=== PATIENT | male | born 1945 | race Caucasian/White ===

== ENCOUNTER 2017-02-18 11:56 | Emergency (ER) | payer MEDICARE, BC ==
[~2017-02-18 11:56] MED LIST: Lactated Ringers 1,000 ML IV ONE; Propofol 200 MG/20 ML SDV IV ONE; Rocuronium 50 MG/5 ML Vial IV ONE; Succinylcholine/Normal Saline 200 MG/10 ML Syringe IV ONE; ePHEDrine/Normal Saline 50 MG/5 ML Syringe IV ONE
[2017-02-18] MEDS ORDERED: Sodium Chloride 0.9% 500 ML IV ONE (12:08)
[2017-02-18] MEDS ORDERED: DOPamine/Dextrose 5%-Water 400 MG/250 ML BAG IV SCH (12:10)
--- NOTE | 2017-02-18 13:15 | EDM.PDOC ---
ED HPI GENERAL MEDICAL PROBLEM - General Chief Complaint: Cardiovascular Problem Stated Complaint: CODE 100 Time Seen by Provider: 02/18/17 11:56 Source of Information: Reports: Patient History Limitations: Reports: No Limitations - History of Present Illness INITIAL COMMENTS - FREE TEXT/NARRATIVE: c/o cardiac arrest reports pt has had stent x 2 recently, valve replacement in past year and 3 prior intubations in past year pt with decline over past 2-3m with weakness, inc'd weakness in past 2d, saw PCP Dr Delarosa yesterday, unclear if there was a change in meds at home today and she found him down, unknown how long, pt had been ambulating earlier EMS arrived, in PEA, Javon compressions x 15 min, initial EKG with no ST changes as was the repeat in ED, trop neg here pt given epi x 2 and amiodarone 150 mg via IO for PVB altho rare PVB in ED EMS BP acceptable and on arrival here with a weak femoral pulse, fair AE with mod exp wheezing noted pt given Versed 2 mg enroute, some bucking the Zach tube on arrival here followed by copious emesis that came up the central tube, oral suction done as well as attempt at gastric suction via the smaller side tube with no return of secretions from the stomach, pt given 12 cc of propofol, 6 cc Anectine and 1 mg Versed and anesthestist changed out to a 8.0 ET tube on first pass, minimal oral secretions noted in the vault with suctioning by myself just prior to placement of Zach, no emesis noted in nares or oropharynx, Zach seemed adequate on inspection of the inflated bulb on arrival initial venous pH 7.14 with pCO2 68, repeat was 7.14 and 66, unclear why it had not improved more lungs with good AE and less (minimal) wheeze on vent, capnography adequate with both Zach and ET tube CxR not obtained d/t logistic limitations with backboard, ET at 24 cm at teeth pt arrived with IO, fairly quickly access obtained in each arm, pt appeared hydrated, no edema, distended veins that were easily cannulated labs with WBC 17.1, hgb 13.5, plt 201, BUN/creat 16/1.0 and 2 sons present from shortly after arrival and at bedside during much of resuscitation - Related Data Allergies Allergy/AdvReac Type Severity Reaction Status Date / Time No Known Allergies Allergy Verified 04/23/13 09:18 Home Meds: Home Meds Folic Acid 1 mg PO DAILY 04/23/13 [History] Furosemide 40 mg PO DAILY 04/23/13 [History] Gabapentin 300 mg PO BID 04/23/13 [History] Gabapentin 600 mg PO BEDTIME 04/23/13 [History] Methotrexate Sodium [Methotrexate] 15 mg PO ASDIRECTED 04/23/13 [History] Nortriptyline HCl 50 mg PO DAILY 04/23/13 [History] glyBURIDE [Glyburide] 5 mg PO BID 04/23/13 [History] metFORMIN HCl [Metformin HCl] 850 mg PO BID 04/23/13 [History] Fluticasone Propionate [Flonase] 50 mcg NASBOTH DAILY 08/15/13 [History] Triamcinolone Acetonide [Kenalog 0.1% Crm] 15 gm .XX BID 08/15/13 [History] Past Medical History Cardiovascular History: Reports: Heart Valve Replacement Other Respiratory History: Pneumonia on 01-12-17 - Past Surgical History Other Musculoskeletal Surgeries/Procedures:: R knee arthroscopy. R LISY ED ROS GENERAL - Review of Systems Review Of Systems: ROS reveals no pertinent complaints other than HPI. Constitutional: Reports: Weakness, Other ( reports he had a boil and then a sore of ~15 x 8 cm on his back that sounds like a decub altho back not able to be examined in ED). Denies: Fever, Chills, Diaphoresis HEENT: Reports: No Symptoms Respiratory: Reports: Wheezing Cardiovascular: Denies: Chest Pain, Edema, Lightheadedness, Orthopnea Endocrine: Reports: No Symptoms GI/Abdominal: Reports: No Symptoms : Reports: No Symptoms Musculoskeletal: Reports: No Symptoms Skin: Reports: No Symptoms Neurological: Reports: No Symptoms Psychiatric: Reports: No Symptoms Hematologic/Lymphatic: Reports: No Symptoms Immunologic: Reports: No Symptoms ED EXAM, GENERAL - Physical Exam Exam: See Below Exam Limited By: Physical Impairment General Appearance: WD/WN Ears: Normal External Exam Nose: Normal Inspection, Normal Mucosa, No Blood Throat/Mouth: Normal Inspection, Normal Lips, Normal Teeth, Normal Gums, Normal Oropharynx, No Airway Compromise, Other (partial dentures up and down) Head: Atraumatic, Normocephalic Neck: Normal Inspection Respiratory/Chest: Other (good AE, good chest wheeze, end exp wheeze b/l) Cardiovascular: Regular Rate, Rhythm, Other (no tachy, regular, rare PVB, 2/6 REI at [facility]) GI/Abdominal: Soft, No Distention Extremities: Normal Inspection, No Pedal Edema, Normal Capillary Refill. No: Pedal Edema Skin Exam: Warm, Dry, Intact, Normal Color, No Rash Lymphatic: No Adenopathy Course - Vital Signs Last Recorded V/S: Last Vital Signs Temp Pulse Resp BP Pulse Ox 92 L 02/18/17 12:45 - Orders/Labs/Meds Orders: Active Orders 24 hr Category Date Time Status Ventilator Assessment [RT Ventilator, Adult] [RC] Care 02/18/17 12:00 Active ASDIRECTED CULTURE BLOOD [BC] Routine Lab 02/18/17 12:20 Received Labs: Laboratory Tests 02/18/17 02/18/17 02/18/17 Range/Units 11:55 11:55 11:55 WBC (4.5-12.0) X10-3/uL RBC (4.30-5.75) x10(6)uL Hgb (11.5-15.5) g/dL Hct (30.0-51.3) % MCV (80-96) fL MCH (27.7-33.6) pg MCHC (32.2-35.4) g/dL RDW (11.5-15.5) % Plt Count (125-369) X10(3)uL MPV (7.4-10.4) fL Neut % (Auto) (46-82) % Lymph % (Auto) (13-37) % [place] % (Auto) (4-12) % Eos % (Auto) (1.0-5.0) % Baso % (Auto) (0-2) % Neut # (Auto) (1.6-8.3) # Lymph # (Auto) (0.6-5.0) # [place] # (Auto) (0.0-1.3) # Eos # (Auto) (0.0-0.8) # Baso # (Auto) (0.0-0.2) # POC Capillary pH 7.14 L* (7.35-7.45) POC Capillary pCO2 68.4 H* (35-45) mmHg POC Capillary pO2 43 L (80-105) mmHg POC Capillary HCO3 23.3 (22-26) mmol/L POC Capill Base Excess -6 L (-2-3) mmol/L POC Capillary O2 Sat 63 L (95-98) % Sodium 134 L (135-145) mmol/L Potassium 4.5 (3.5-5.3) mmol/L Chloride 103 (100-110) mmol/L Carbon Dioxide 22 L (23-29) mmol/L POC Total CO2 25 (23-27) mmol/L BUN 16 (8-23) mg/dL Creatinine 1.0 (0.6-1.3) mg/dL Est Cr Clr Drug Dosing TNP Estimated GFR (MDRD) > 60 (>60) BUN/Creatinine Ratio 16.0 (9-20) Glucose 341 H D (80-116) mg/dL Calcium 8.2 L (8.6-10.2) mg/dL Total Bilirubin 0.7 (0.1-1.3) mg/dL AST 44 H D (5-27) IU/L ALT 30 H D (14-26) IU/L Alkaline Phosphatase 139 H (56-112) IU/L Troponin I (0.02-0.06) NG/ML B-Natriuretic Peptide 87 (0-100) pg/mL Total Protein 6.7 (6.0-8.0) g/dL Albumin 3.0 L (3.2-4.6) g/dL Globulin 3.7 g/dL Albumin/Globulin Ratio 0.8 02/18/17 02/18/17 02/18/17 Range/Units 11:55 11:55 12:20 WBC 17.1 H (4.5-12.0) X10-3/uL RBC 4.96 (4.30-5.75) x10(6)uL Hgb 13.5 D (11.5-15.5) g/dL Hct 41.2 D (30.0-51.3) % MCV 83.1 (80-96) fL MCH 27.2 L (27.7-33.6) pg MCHC 32.8 (32.2-35.4) g/dL RDW 13.3 (11.5-15.5) % Plt Count 201 (125-369) X10(3)uL MPV 7.9 (7.4-10.4) fL Neut % (Auto) 78.7 (46-82) % Lymph % (Auto) 14.4 (13-37) % [place] % (Auto) 4.7 (4-12) % Eos % (Auto) 2 (1.0-5.0) % Baso % (Auto) 0 (0-2) % Neut # (Auto) 13.4 H (1.6-8.3) # Lymph # (Auto) 2.5 (0.6-5.0) # [place] # (Auto) 0.8 (0.0-1.3) # Eos # (Auto) 0.3 (0.0-0.8) # Baso # (Auto) 0.1 (0.0-0.2) # POC Capillary pH 7.14 L* (7.35-7.45) POC Capillary pCO2 66.2 H (35-45) mmHg POC Capillary pO2 27 L* (80-105) mmHg POC Capillary HCO3 22.5 (22-26) mmol/L POC Capill Base Excess -7 L (-2-3) mmol/L POC Capillary O2 Sat 33 L (95-98) % Sodium (135-145) mmol/L Potassium (3.5-5.3) mmol/L Chloride (100-110) mmol/L Carbon Dioxide (23-29) mmol/L POC Total CO2 24 (23-27) mmol/L BUN (8-23) mg/dL Creatinine (0.6-1.3) mg/dL Est Cr Clr Drug Dosing Estimated GFR (MDRD) (>60) BUN/Creatinine Ratio (9-20) Glucose (80-116) mg/dL Calcium (8.6-10.2) mg/dL Total Bilirubin (0.1-1.3) mg/dL AST (5-27) IU/L ALT (14-26) IU/L Alkaline Phosphatase (56-112) IU/L Troponin I < 0.01 L (0.02-0.06) NG/ML B-Natriuretic Peptide (0-100) pg/mL Total Protein (6.0-8.0) g/dL Albumin (3.2-4.6) g/dL Globulin g/dL Albumin/Globulin Ratio Meds: Medications Discontinued Medications Generic Name Dose Route Start Last Admin Trade Name Dayan PRN Reason Stop Dose Admin Ephedrine Sulfate 20 mg 02/18/17 11:45 Ephedrine In Ns IV 02/18/17 11:46 .STK-MED ONE Lactated Ringer's 1,000 mls @ as directed 02/18/17 11:45 Ringers, Lactated IV 02/18/17 11:46 .STK-MED ONE Propofol 120 mg 02/18/17 11:45 Diprivan 20 Ml IV 02/18/17 11:46 .STK-MED ONE Rocuronium Conde 30 mg 02/18/17 11:45 Zemuron IV 02/18/17 11:46 .STK-MED ONE Succinylcholine Chloride 120 mg 02/18/17 11:45 Succinylcholine In Ns Pf IV 02/18/17 11:46 .STK-MED ONE - Re-Assessments/Exams Free Text/Narrative Re-Assessment/Exam: 02/18/17 13:18 cardiac arrest, presumed arrhythmia, has no pacer or ACID, d/w bed triage at [facility] where he usually goes but they had no beds, d/w Dr Dow at [facility] who accepted him in transfer, report given to air transport, 1200 cc IVF given by EMS and another 1000 cc in ED, 200 cc fluids in IN bag at transport, total of 20 mg ephedrine given by dry cure worker, SBP down to 59 briefly, dopamine up to 40, then dec'd to 20 at time of transport with BP about 100/60, HR remained mid to low 70's entire time--even after meds, ASA and Plavix only anticoagulants Departure - Departure Time of Disposition: 13:00 Disposition: DC/Tfer to Acute Hospital 02 Reason for Transfer *Q: Other (critical to ICU) Condition: Critical Clinical Impression: Cardiac arrest, Sinus rhythm seen on monitor worker, Metabolic acidosis with respiratory acidosis, RBBB, First degree atrioventricular block Referrals: Fadi Klein MD [Primary Care Provider] - Forms: ED Department Discharge - My Orders Last 24 Hours: My Active Orders 02/18/17 12:00 Ventilator Assessment [RT Ventilator, Adult] [RC] ASDIRECTED 02/18/17 12:20 CULTURE BLOOD [BC] Routine - Assessment/Plan Last 24 Hours: My Active Orders 02/18/17 12:00 Ventilator Assessment [RT Ventilator, Adult] [RC] ASDIRECTED 02/18/17 12:20 CULTURE BLOOD [BC] Routine
== END 2017-02-18 12:49 ==
LOC: FB.ED 11:56
DX: I46.9 Cardiac arrest, cause unspecified (principal); I44.0 Atrioventricular block, first degree; I45.10 Unspecified right bundle-branch block; E87.4 Mixed disorder of acid-base balance; Z95.2 Presence of prosthetic heart valve; Z98.890 Other specified postprocedural states; Z79.899 Other long term (current) drug therapy; R06.2 Wheezing
CPT/HCPCS: 31500; 36410; 36415; 51702; 80053; 82803; 83880; 84484; 85025; 87040; 93005; 96361; 96365; 96374; 96375; 99285; 99291; J1265; J2704; J7040; J7120

== ENCOUNTER 2017-04-28 12:46 | Emergency (ER) | payer MEDICARE, BC ==
[2017-04-28] MEDS ORDERED: Iopamidol 755 Mg/ML 75 ML Bottle IV ONE (14:26)
--- NOTE | 2017-04-28 15:20 | EDM.PDOC ---
ED HPI GENERAL MEDICAL PROBLEM - General Chief Complaint: Cardiovascular Problem Stated Complaint: CHEST PAIN Time Seen by Provider: 04/28/17 13:08 Source of Information: Reports: Patient, Family History Limitations: Reports: Altered Mental Status, Physical Impairment, Respiratory Distress - History of Present Illness INITIAL COMMENTS - FREE TEXT/NARRATIVE: 72 y.o.w.m s/p cardiac arrest a few months ago, came to the ed with his family, because he was coughing in the bathroom and past out. As the pt arrived here in [facility] ed, he c/o c/p which was subsiding. He is a poor historian. minor movements make him extremely dizzy. Pt has chronic intermittent constipation. he has a h/ o right sided pleural effusions, which was drained in the past and analysed. No CA was detected, as per son. No records are available at [facility] [place]. Onset: Today Onset Date: 04/28/17 Onset Time: 11:00 Duration: Minutes:, Getting Worse, Intermittent Location: Reports: Chest, Abdomen Quality: Reports: Burning, Dull, Pressure, Same as Previous Episode Severity: Moderate Improves with: Reports: Medication Worsens with: Reports: Breathing, Cold Therapy, Eating, Heat Therapy, Movement Context: Reports: Other (S/P cardiac arrest) Associated Symptoms: Reports: Confusion, Cough, Shortness of Breath, Weakness - Related Data Allergies Allergy/AdvReac Type Severity Reaction Status Date / Time No Known Allergies Allergy Verified 04/23/13 09:18 Home Meds: Home Meds Furosemide 40 mg PO DAILY 04/23/13 [History] Gabapentin 300 mg PO BID 04/23/13 [History] Gabapentin 600 mg PO BEDTIME 04/23/13 [History] Nortriptyline HCl 50 mg PO DAILY 04/23/13 [History] glyBURIDE [Glyburide] 5 mg PO BID 04/23/13 [History] Past Medical History Cardiovascular History: Reports: Heart Valve Replacement Other Respiratory History: Pneumonia on 01-12-17 - Past Surgical History Other Musculoskeletal Surgeries/Procedures:: R knee arthroscopy. R LISY Social & Family History - Tobacco Use Smoking Status *Q: Former Smoker Used Tobacco, but Quit: Yes Month Tobacco Last Used: vanna Second Hand Smoke Exposure: No - Caffeine Use Caffeine Use: Reports: Coffee - Recreational Drug Use Recreational Drug Use: No ED ROS GENERAL - Review of Systems Review Of Systems: Unable To Obtain ED EXAM, GENERAL - Physical Exam Exam: See Below Exam Limited By: Physical Impairment General Appearance: Alert, Moderate Distress, Thin Eye Exam: Bilateral Eye: Normal Inspection Ears: Normal External Exam Ear Exam: Bilateral Ear: Auricle Normal Nose: Normal Inspection, Normal Mucosa Throat/Mouth: Normal Inspection, Normal Lips Head: Atraumatic, Normocephalic Neck: Normal Inspection, Supple Respiratory/Chest: Respiratory Distress, Decreased Breath Sounds (poor insp effort) Cardiovascular: Normal Peripheral Pulses, Regular Rate, Rhythm, No Edema, No Gallop Peripheral Pulses: 1+: Femoral (L), Femoral (R) GI/Abdominal: Distended, Rigid, Tender, Abnormal Bowel Sounds (Male) Exam: Deferred Rectal (Males) Exam: Deferred Back Exam: Normal Inspection, Full Range of Motion Extremities: Normal Inspection, Normal Range of Motion, Non-Tender, No Pedal Edema Neurological: Alert, CN II-XII Intact, Abnormal Gait (unable to ambulate due to weakness, dizzyness) Psychiatric: Normal Affect, Depressed Mood Skin Exam: Warm, Dry, Intact, Normal Color, No Rash Lymphatic: No Adenopathy EKG INTERPRETATION EKG Date: 04/28/17 Time: 13:10 Rhythm: NSR Rate (Beats/Min): 80 [place]: Normal P-Wave: Present QRS: Normal ST-T: Normal QT: Normal Comparison: NA - No Prior EKG Course - Vital Signs Text/Narrative:: 72 y.o.w.m s/p cardiac arrest a few months ago, came to the ed with his family, because he was coughing in the bathroom and past out. As the pt arrived here in [facility] ed, he c/o c/p which was subsiding. He is a poor historian. minor movements make him extremely dizzy. Pt has chronic intermittent constipation. he has a h/ o right sided pleural effusions, which was drained in the past and analysed. No CA was detected, as per son. No records are available at [facility]. PE: weak, thin 72 y.o.w.m NAD with a BP 100/55 and pus of 80, pulse ox on 2 liters O2 94% OX# no focal weaknesses, distended and tender abdomen. Imaging: CXR Pleural effusion r lung. RAD requested a CXR PA/LAT Labs: CBC, Na and K were nl. Troponin 0.01 Impression: Syncopal episode with C/P, R pleural effusion. Chronic constipation , S/P cardiac arrest. H/O heartvalve replacement. DNR/DNI (as per son,) Dizziness, cause not determined; generalized weakness. Tx: NS Reexam: Pt attempted to go to the bathroom, with help and got extremely dizzy, needing to go back to his bed. He stabilized after O2 was applied per PR. 3.40pm Consultation Dr. Doan, Hospitalist at [facility]: Accepted the pt for transfer and admission Plan: Transfer to [facility] by EMS. Last Recorded V/S: Last Vital Signs Temp 36.4 C 04/28/17 16:34 Pulse 84 04/28/17 16:34 Resp 22 H 04/28/17 16:34 BP 96/52 L 04/28/17 16:34 Pulse Ox 100 04/28/17 16:34 - Orders/Labs/Meds Orders: Active Orders 24 hr Category Date Time Status CXR [Chest 2V] [CR] Stat Exams 04/28/17 14:47 Taken Chest 1V Frontal [CR] Stat Exams 04/28/17 13:17 Taken Saline Lock Insert [OM.PC] Routine Oth 04/28/17 15:49 Ordered EKG 12 Lead [EK] Routine Ther 04/28/17 13:17 Ordered Labs: Laboratory Tests 04/28/17 04/28/17 04/28/17 Range/Units 12:57 13:30 13:30 WBC 8.3 (4.5-12.0) X10-3/uL RBC 4.80 (4.30-5.75) x10(6)uL Hgb 13.8 (11.5-15.5) g/dL Hct 40.4 (30.0-51.3) % MCV 84.2 (80-96) fL MCH 28.8 (27.7-33.6) pg MCHC 34.2 (32.2-35.4) g/dL RDW 14.2 (11.5-15.5) % Plt Count 214 (125-369) X10(3)uL MPV 7.8 (7.4-10.4) fL Add Manual Diff Yes Neutrophils % (Manual) 85 H (46-82) % Lymphocytes % (Manual) 10 L (13-37) % Monocytes % (Manual) 4 (4-12) % Eosinophils % (Manual) 1 (0-5) % PT 11.0 (8.7-11.1) INR 1.09 (0.89-1.13) Sodium (135-145) mmol/L Potassium (3.5-5.3) mmol/L Chloride (100-110) mmol/L Carbon Dioxide (23-29) mmol/L BUN (8-23) mg/dL Creatinine (0.6-1.3) mg/dL Est Cr Clr Drug Dosing mL/min Estimated GFR (MDRD) (>60) BUN/Creatinine Ratio (9-20) Glucose (80-116) mg/dL POC Glucose 143 H (80-116) mg/dL Lactic Acid (0.5-2.2) mmol/L Calcium (8.6-10.2) mg/dL Creatine Kinase (60-160) IU/L Troponin I (0.02-0.06) NG/ML 04/28/17 04/28/17 04/28/17 Range/Units 13:30 13:30 13:30 WBC (4.5-12.0) X10-3/uL RBC (4.30-5.75) x10(6)uL Hgb (11.5-15.5) g/dL Hct (30.0-51.3) % MCV (80-96) fL MCH (27.7-33.6) pg MCHC (32.2-35.4) g/dL RDW (11.5-15.5) % Plt Count (125-369) X10(3)uL MPV (7.4-10.4) fL Add Manual Diff Neutrophils % (Manual) (46-82) % Lymphocytes % (Manual) (13-37) % Monocytes % (Manual) (4-12) % Eosinophils % (Manual) (0-5) % PT (8.7-11.1) INR (0.89-1.13) Sodium 135 (135-145) mmol/L Potassium 4.3 (3.5-5.3) mmol/L Chloride 102 (100-110) mmol/L Carbon Dioxide 23 (23-29) mmol/L BUN 18 (8-23) mg/dL Creatinine 1.0 (0.6-1.3) mg/dL Est Cr Clr Drug Dosing 74.35 mL/min Estimated GFR (MDRD) > 60 (>60) BUN/Creatinine Ratio 18.0 (9-20) Glucose 168 H D (80-116) mg/dL POC Glucose (80-116) mg/dL Lactic Acid 2.3 H (0.5-2.2) mmol/L Calcium 8.6 (8.6-10.2) mg/dL Creatine Kinase 50 L (60-160) IU/L Troponin I < 0.01 L (0.02-0.06) NG/ML Meds: Medications Discontinued Medications Generic Name Dose Route Start Last Admin Trade Name Freq PRN Reason Stop Dose Admin Iopamidol 75 ml 04/28/17 14:26 Isovue-370 (76%) IV 04/28/17 14:27 ASDIRECTED ONE Sodium Chloride 10 ml 04/28/17 15:49 04/28/17 15:50 Saline Flush FLUSH 10 ml ASDIRECTED PRN Administration Keep Vein Open Departure - Departure Time of Disposition: 17:00 Disposition: DC/Tfer to [facility] 02 Reason for Transfer *Q: Other (no gas singer in house) Condition: Fair Clinical Impression: Atypical syncope Referrals: Fadi Klein MD [Primary Care Provider] - Forms: ED Department Discharge - My Orders Last 24 Hours: My Active Orders 04/28/17 13:17 Chest 1V Frontal [CR] Stat EKG 12 Lead [EK] Routine 04/28/17 14:47 CXR [Chest 2V] [CR] Stat 04/28/17 15:49 Saline Lock Insert [OM.PC] Routine - Assessment/Plan Last 24 Hours: My Active Orders 04/28/17 13:17 Chest 1V Frontal [CR] Stat EKG 12 Lead [EK] Routine 04/28/17 14:47 CXR [Chest 2V] [CR] Stat 04/28/17 15:49 Saline Lock Insert [OM.PC] Routine
[2017-04-28] MEDS ORDERED: Sodium Chloride 0.9% 10 ML Syringe FLUSH PRN (15:49)
[2017-04-28 16:36] VITALS: BP 96/52
--- NOTE | 2017-04-29 09:02 | CR ---
INDICATION: Reevaluate pleural effusion. CHEST: PA and lateral views of the chest, 04/28/2017, were compared with AP view, a portable from the same date earlier, (1458 and 1336 hours respectively for the two images), and also compared with 03/11/2017 and 02/08/2017 examinations from the clinic. The pleuroparenchymal changes at the right lung base are not new and have been present since at least 02/08/2017. At this time, there appears to be a somewhat increased amount of pleural fluid, however. This is a slight increase compared with 03/11/2017, but a moderate increase compared with 02/08/2017. It is moderate to moderately large pleural effusion. There may be some infiltrative changes and/or atelectatic changes present also in this area. Aortic valve replacement is again noted. The heart is enlarged without definite CHF. Overlying EKG leads are seen. IMPRESSION: Slightly enlarged pleural effusion on the right with parenchymal changes also suggested. No new acute process identified. MTDD
--- NOTE | 2017-04-29 15:18 | CR ---
INDICATION: Chest pain. CHEST: An AP upright portable view of the chest, 04/28/2017, was compared with 03/11/2017 and 02/08/2017, again revealing pleuroparenchymal changes at the right lung base, which appear to be significantly increased compared with the recent examinations. Especially pleural effusion appears to be increased. Findings may be on the basis of pneumonia and pleuritis, but should be correlated clinically. No other change or new acute process was identified. The heart appears enlarged. Overlying EKG leads are noted. Left lung and pleural space appear to be clear. IMPRESSION: Increasing pleuroparenchymal changes on the right at the mid to lower lung field, including a moderately large pleural effusion. MTDD
== END 2017-04-28 16:34 ==
LOC: FB.ED 12:46
DX: R55 Syncope and collapse (principal); Z87.891 Personal history of nicotine dependence
CPT/HCPCS: 36415; 71010; 71020; 80048; 82550; 82962; 83605; 84484; 85025; 85610; 93005; 99285; J7050; 99284

== ENCOUNTER 2018-11-05 22:49 | Inpatient (IN) | payer MEDICARE, BC ==
[2018-11-05] MEDS ORDERED: Albuterol/Ipratropium 3.0-0.5 MG/3 ML Neb Soln NEB ONE (23:33)
[2018-11-06] MEDS ORDERED: Acetaminophen 325 MG Tab PO STA (00:08)
--- NOTE | 2018-11-06 00:13 | EDM.PDOC ---
ED HPI GENERAL MEDICAL PROBLEM - General Chief Complaint: Respiratory Problem Stated Complaint: TROUBLE BREATHING Time Seen by Provider: 11/05/18 22:49 Source of Information: Reports: Patient, Family History Limitations: Reports: Respiratory Distress - History of Present Illness INITIAL COMMENTS - FREE TEXT/NARRATIVE: 73 y.o.w.m came with his to the ED because of SOB and right ankle swelling , which is new. He his temp is 1.2 on arrival. No CP. Pt is breathing better in sitting position, he has a dry cough intermittently. He feels fullness at his lower chest, bilaterally. No N/V/D, pt is a poor historian, his HPI was given by his wive. no other acute medical issues. Pulse ox 90% on RA RR 18 Temp 38.4 Pulse 94 Onset Date: 11/03/18 Onset Time: 07:00 Duration: Day(s):, Getting Worse, Intermittent Location: Reports: Chest Quality: Reports: Dull, Same as Previous Episode Severity: Moderate Improves with: Reports: Rest Worsens with: Reports: Movement Context: Reports: Other (H/O CHF H/O pneumonia) Associated Symptoms: Reports: Chest Pain, Shortness of Breath abdomen Pain Score (Numeric/FACES): 2 - Related Data Allergies Allergy/AdvReac Type Severity Reaction Status Date / Time No Known Allergies Allergy Verified 11/06/18 01:57 Home Meds: Home Meds Furosemide 40 mg PO BID 04/23/13 [History] Gabapentin 300 mg PO BID 04/23/13 [History] Carvedilol [Coreg] 12.5 mg PO BID 03/09/18 [History] Clopidogrel Bisulfate [Clopidogrel] 75 mg PO DAILY 03/09/18 [History] Famotidine 20 mg PO BID 03/09/18 [History] Nitroglycerin [Nitrostat] 0.4 mg SL ASDIRECTED PRN 03/09/18 [History] Nortriptyline 50 mg PO BEDTIME 03/09/18 [History] Tamsulosin [Flomax] 0.4 mg PO DAILY 03/09/18 [History] amLODIPine Besylate [Norvasc] 5 mg PO DAILY 03/09/18 [History] glipiZIDE [Glucotrol] 5 mg PO BID 03/09/18 [History] Fluticasone Propionate [Flonase] 1 inh NASBOTH DAILY 11/06/18 [History] Fluticasone/Umeclidin/Vilanter [Trelegy Ellipta 100-62.5-25] 1 puff INH DAILY [History] atorvaSTATin [Lipitor] 10 mg PO BEDTIME 11/06/18 [History] Past Medical History HEENT History: Reports: Cataract, Impaired Vision, Other (See Below) Other HEENT History: DIABETIC RETINOPATHY Cardiovascular History: Reports: Arrhythmia, Heart Murmur, Heart Valve Replacement, PVD, Stents, Other (See Below) Other Cardiovascular History: AORTIC STENOSIS Genitourinary History: Reports: BPH Musculoskeletal History: Reports: Arthritis Neurological History: Reports: Other (See Below) Other Neuro History: SINHA'S PALSY Psychiatric History: Reports: None Endocrine/Metabolic History: Reports: Diabetes, Type II Hematologic History: Reports: Anticoagulation Therapy Immunologic History: Reports: None Oncologic (Cancer) History: Reports: None Dermatologic History: Reports: None - Past Surgical History HEENT Surgical History: Reports: Cataract Surgery, Eye Surgery Cardiovascular Surgical History: Reports: Coronary Artery Stent, Other (See Below) Other Cardiovascular Surgeries/Procedures: TRANSFEMORAL AORTIC VALVE IMPLANTATION GI Surgical History: Reports: Cholecystectomy Neurological Surgical History: Reports: Discectomy, Laminectomy Musculoskeletal Surgical History: Reports: Arthroscopic Knee, Hip Replacement Other Musculoskeletal Surgeries/Procedures:: R knee arthroscopy. R LISY Social & Family History - Caffeine Use Caffeine Use: Reports: Coffee ED ROS GENERAL - Review of Systems Review Of Systems: Unable To Obtain (hypoxemia) ED EXAM, GENERAL - Physical Exam Exam: See Below Exam Limited By: Respiratory Distress General Appearance: Alert, WD/WN, Moderate Distress Eye Exam: Bilateral Eye: Normal Inspection Ears: Normal External Exam Ear Exam: Bilateral Ear: Auricle Normal Nose: Normal Inspection, Normal Mucosa, No Blood Throat/Mouth: Normal Inspection, Normal Lips, Normal Voice, No Airway Compromise Head: Atraumatic, Normocephalic Neck: Normal Inspection, Supple, Non-Tender, Full Range of Motion Respiratory/Chest: No Respiratory Distress, Lungs Clear, Normal Breath Sounds Cardiovascular: Normal Peripheral Pulses, Regular Rate, Rhythm, No Edema, No Gallop, No Rub Peripheral Pulses: 2+: Brachial (R) GI/Abdominal: Normal Bowel Sounds, Soft, Non-Tender, No Organomegaly, No Abnormal Bruit, No Mass, Pelvis Stable (Male) Exam: Deferred Rectal (Males) Exam: Deferred Back Exam: Normal Inspection, Full Range of Motion Extremities: Normal Inspection, Normal Range of Motion, Non-Tender, Pedal Edema (right leg) Neurological: Alert, Oriented, CN II-XII Intact, Normal Cognition, Abnormal Gait (to weak to ambulate) Psychiatric: Normal Affect, Normal Mood Skin Exam: Warm, Dry, Intact, Normal Color, No Rash Lymphatic: No Adenopathy Course - Vital Signs Text/Narrative:: 73 y.o.w.m came with his to the ED because of SOB and right ankle swelling , which is new. He his temp is 1.2 on arrival. No CP. Pt is breathing better in sitting position, he has a dry cough intermittently. He feels fullness at his lower chest, bilaterally. No N/V/D, pt is a poor historian, his HPI was given by his wive. no other acute medical issues. Pulse ox 90% on RA RR 18 Temp 38.4 Pulse 94 PE: WNWD W M with SOB, Cough and fever and cracles Imaging: intrapleural train in place, atelectasis/infiltrate, small right basilar hydropneumothorx Labs: BNP 1031 WBC 10.3 HGB 10.3 BUN 20 Cr 1.1 GFR 50 Na 131, k 4.0 Impression: CHF with hypoxemia, Hyponatremia Tx: Tylenol, Duoneb, lasix Reexam: Improved Plan: Admit to [facility] Last Recorded V/S: Last Vital Signs Temp 36.4 C 11/06/18 07:59 Pulse 81 11/06/18 07:59 Resp 18 11/06/18 07:59 BP 143/76 H 11/06/18 07:59 Pulse Ox 94 L 11/06/18 07:59 - Orders/Labs/Meds Orders: Active Orders 24 hr Category Date Time Status CXR [Chest 2V] [CR] Stat Exams 11/05/18 23:32 Ordered Medication Orders Albuterol (Proventil Neb Soln) 2.5 mg NEB Q4H PRN PRN Reason: sob Last Admin: 11/06/18 03:27 Dose: 2.5 mg Amlodipine Besylate (Norvasc) 5 mg PO DAILY [facility] Atorvastatin Calcium (Lipitor) 10 mg PO BEDTIME [facility] Carvedilol (Coreg) 12.5 mg PO BID [facility] Clopidogrel Bisulfate (Plavix) 75 mg PO DAILY [facility] Famotidine (Pepcid) 20 mg PO BID [facility] Fluticasone Propionate (Flonase) gm NASBOTH DAILY [facility] Furosemide (Lasix) 40 mg PO BID [facility] Gabapentin (Neurontin) 300 mg PO BID [facility] Glipizide (Glucotrol) 5 mg PO BID [facility] Levofloxacin/Dextrose 500 mg/ (Premix) 100 mls @ 100 mls/hr IV Q24H [facility] Methylprednisolone Sodium Succinate (Solu-Medrol) 125 mg IVPUSH Q8H [facility] Nitroglycerin (Nitrostat) 0.4 mg SL ASDIRECTED PRN PRN Reason: Chest Pain Non-Formulary Medication (Fluticasone/Umeclidin/Vilanter [Trelegy Ellipta 100- 62.5-25]) 1 puff INH DAILY [facility] Nortriptyline HCl (Nortriptyline) 50 mg PO BEDTIME [facility] Sodium Chloride (Saline Flush) 10 ml FLUSH ASDIRECTED PRN PRN Reason: Keep Vein Open Last Admin: 11/06/18 01:22 Dose: 10 ml Admin: 11/06/18 01:15 Dose: 10 ml Tamsulosin HCl (Flomax) 0.4 mg PO DAILY [facility] Labs: Laboratory Tests 11/05/18 11/05/18 11/05/18 Range/Units 23:35 23:35 23:35 WBC 10.3 (4.5-12.0) X10-3/uL RBC 3.90 L (4.30-5.75) x10(6)uL Hgb 10.3 L (13.5-17.8) g/dL Hct 31.0 (30.0-51.3) % MCV 79.6 L (80-96) fL MCH 26.5 L (27.7-33.6) pg MCHC 33.3 (32.2-35.4) g/dL RDW 14.7 (11.5-15.5) % Plt Count 246 (125-369) X10(3)uL MPV 7.3 L (7.4-10.4) fL Add Manual Diff Yes Neutrophils % (Manual) 83 H (46-82) % Band Neutrophils % 3 (0-6) % Lymphocytes % (Manual) 6 L (13-37) % Monocytes % (Manual) 8 (4-12) % PT 11.5 H (8.7-11.1) INR 1.19 H (0.89-1.13) Sodium 131 L (135-145) mmol/L Potassium 4.4 (3.5-5.3) mmol/L Chloride 97 L (100-110) mmol/L Carbon Dioxide 25 (21-32) mmol/L BUN 20 H (7-18) mg/dL Creatinine 1.4 H (0.70-1.30) mg/dL Est Cr Clr Drug Dosing TNP Estimated GFR (MDRD) 50 L (>60) BUN/Creatinine Ratio 14.3 (9-20) Glucose 376 H (80-116) mg/dL Calcium 8.4 L (8.6-10.2) mg/dL NT-Pro-B Natriuret Pep (<=125) pg/mL 11/05/18 Range/Units 23:35 WBC (4.5-12.0) X10-3/uL RBC (4.30-5.75) x10(6)uL Hgb (13.5-17.8) g/dL Hct (30.0-51.3) % MCV (80-96) fL MCH (27.7-33.6) pg MCHC (32.2-35.4) g/dL RDW (11.5-15.5) % Plt Count (125-369) X10(3)uL MPV (7.4-10.4) fL Add Manual Diff Neutrophils % (Manual) (46-82) % Band Neutrophils % (0-6) % Lymphocytes % (Manual) (13-37) % Monocytes % (Manual) (4-12) % PT (8.7-11.1) INR (0.89-1.13) Sodium (135-145) mmol/L Potassium (3.5-5.3) mmol/L Chloride (100-110) mmol/L Carbon Dioxide (21-32) mmol/L BUN (7-18) mg/dL Creatinine (0.70-1.30) mg/dL Est Cr Clr Drug Dosing Estimated GFR (MDRD) (>60) BUN/Creatinine Ratio (9-20) Glucose (80-116) mg/dL Calcium (8.6-10.2) mg/dL NT-Pro-B Natriuret Pep 1031 H* (<=125) pg/mL Meds: Medications Generic Name Dose Route Start Last Admin Trade Name Dayan PRN Reason Stop Dose Admin Albuterol 2.5 mg 11/06/18 01:05 11/06/18 09:19 Proventil Neb Soln NEB 2.5 mg Q4H PRN Administration sob Amlodipine Besylate 5 mg 11/06/18 09:00 Norvasc PO DAILY [facility] Atorvastatin Calcium 10 mg 11/06/18 21:00 Lipitor PO BEDTIME [facility] Carvedilol 12.5 mg 11/06/18 09:00 Coreg PO BID [facility] Clopidogrel Bisulfate 75 mg 11/06/18 09:00 Plavix PO DAILY [facility] Famotidine 20 mg 11/06/18 09:00 Pepcid PO BID [facility] Fluticasone Propionate gm 11/06/18 09:00 Flonase NASBOTH DAILY [facility] Furosemide 40 mg 11/06/18 09:00 Lasix PO BID [facility] Gabapentin 300 mg 11/06/18 09:00 Neurontin PO BID [facility] Glipizide 5 mg 11/06/18 09:00 Glucotrol PO BID [facility] Levofloxacin/Dextrose 500 mg/ 100 mls @ 100 mls/hr 11/06/18 09:00 Premix IV Q24H [facility] Methylprednisolone Sodium Succinate 125 mg 11/06/18 09:00 Solu-Medrol IVPUSH Q8H [facility] Nitroglycerin 0.4 mg 11/06/18 08:45 Nitrostat SL ASDIRECTED PRN Chest Pain Non-Formulary Medication 1 puff 11/06/18 09:00 Fluticasone/Umeclidin/Vilanter [Trelegy Ellipta 100-62.5-25] INH DAILY [facility] Nortriptyline HCl 50 mg 11/06/18 21:00 Nortriptyline PO BEDTIME [facility] Sodium Chloride 10 ml 11/06/18 01:39 11/06/18 01:22 Saline Flush FLUSH 10 ml ASDIRECTED PRN Administration Keep Vein Open Tamsulosin HCl 0.4 mg 11/06/18 09:00 Flomax PO DAILY [facility] Discontinued Medications Generic Name Dose Route Start Last Admin Trade Name Teoq PRN Reason Stop Dose Admin Acetaminophen 650 mg 11/06/18 00:08 11/06/18 00:18 Tylenol PO 11/06/18 00:09 650 mg NOW STA Administration Albuterol/Ipratropium 3 ml 11/05/18 23:33 11/05/18 23:54 Duoneb 3.0-0.5 Mg/3 Ml NEB 11/05/18 23:34 3 ml ONETIME ONE Administration Furosemide 20 mg 11/06/18 00:46 11/06/18 01:20 Lasix IVPUSH 11/06/18 00:47 20 mg NOW ONE Administration Methylprednisolone Sodium Succinate 125 mg 11/06/18 01:06 11/06/18 01:22 Solu-Medrol IVPUSH 11/06/18 01:07 125 mg ONETIME ONE Administration Departure - Departure Time of Disposition: 02:00 Disposition: Admitted As Inpatient 65 Condition: Fair Clinical Impression: CHF (congestive heart failure) - Discharge Information - My Orders Last 24 Hours: My Active Orders 11/05/18 23:32 CXR [Chest 2V] [CR] Stat - Assessment/Plan Last 24 Hours: My Active Orders 11/05/18 23:32 CXR [Chest 2V] [CR] Stat
[2018-11-06] MEDS ORDERED: Furosemide 40 MG/4 ML VIAL IVPUSH ONE (00:46)
[2018-11-06] MEDS ORDERED: methylPREDNISolone Sodium Succinate 125 MG/2 ML SDV IVPUSH ONE (01:06)
[2018-11-06] MEDS: Sodium Chloride 0.9% 10 ML Syringe FLUSH PRN ×4 (01:15→17:02)
[2018-11-06] MEDS: Albuterol 0.083% 2.5 MG/3 ML Neb Soln NEB PRN ×2 (03:27→09:19)
[2018-11-06] MEDS ORDERED: Nitroglycerin 0.4 MG Tab.SL SL PRN (08:45)
--- NOTE | 2018-11-06 08:45 | PCM.HP ---
H&P History of Present Illness - General Date of Service: 11/06/18 Admit Problem/Dx: Admission Diagnosis/Problem Admission Diagnosis/Problem CHF, Congestive heart failure History Limitations: Reports: No Limitations - History of Present Illness Initial Comments - Free Text/Narative: 73-year-old male was admitted because of cough, productive of greenish sputum, associated with difficulty breathing. Symptoms have gone on for several days, insidious onset,and progressively getting worse. Dejan has a history of chronic pleural effusion,and possibly COPD. He also has a history of coronary disease, type 2 diabetes and CVA. He denied fever chest pain or chills. abdomen Pain Score (Numeric/FACES): 2 - Related Data Allergies/Adverse Reactions: Allergies Allergy/AdvReac Type Severity Reaction Status Date / Time No Known Allergies Allergy Verified 11/06/18 01:57 Home Medications: Home Meds Furosemide 40 mg PO BID 04/23/13 [History] Gabapentin 300 mg PO BID 04/23/13 [History] Carvedilol [Coreg] 12.5 mg PO BID 03/09/18 [History] Clopidogrel Bisulfate [Clopidogrel] 75 mg PO DAILY 03/09/18 [History] Famotidine 20 mg PO BID 03/09/18 [History] Nitroglycerin [Nitrostat] 0.4 mg SL ASDIRECTED PRN 03/09/18 [History] Nortriptyline 50 mg PO BEDTIME 03/09/18 [History] Tamsulosin [Flomax] 0.4 mg PO DAILY 03/09/18 [History] amLODIPine Besylate [Norvasc] 5 mg PO DAILY 03/09/18 [History] glipiZIDE [Glucotrol] 5 mg PO BID 03/09/18 [History] Fluticasone Propionate [Flonase] 1 inh NASBOTH DAILY 11/06/18 [History] Fluticasone/Umeclidin/Vilanter [Trelegy Ellipta 100-62.5-25] 1 puff INH DAILY [History] atorvaSTATin [Lipitor] 10 mg PO BEDTIME 11/06/18 [History] Past Medical History HEENT History: Reports: Cataract, Impaired Vision, Other (See Below) Other HEENT History: DIABETIC RETINOPATHY Cardiovascular History: Reports: Arrhythmia, Heart Murmur, Heart Valve Replacement, PVD, Stents, Other (See Below) Other Cardiovascular History: AORTIC STENOSIS Respiratory History: Reports: COPD, Pneumonia, Recurrent Gastrointestinal History: Reports: Cholelithiasis Genitourinary History: Reports: BPH Musculoskeletal History: Reports: Arthritis Neurological History: Reports: Other (See Below) Other Neuro History: SINHA'S PALSY Psychiatric History: Reports: None Endocrine/Metabolic History: Reports: Diabetes, Type II Hematologic History: Reports: Anticoagulation Therapy Immunologic History: Reports: None Oncologic (Cancer) History: Reports: None Dermatologic History: Reports: None - Infectious Disease History Infectious Disease History: Reports: None - Past Surgical History HEENT Surgical History: Reports: Cataract Surgery, Eye Surgery Cardiovascular Surgical History: Reports: Coronary Artery Stent, Other (See Below) Other Cardiovascular Surgeries/Procedures: TRANSFEMORAL AORTIC VALVE IMPLANTATION Respiratory Surgical History: Reports: None GI Surgical History: Reports: Cholecystectomy, Colonoscopy Male Surgical History: Reports: Circumcision Neurological Surgical History: Reports: Discectomy, Laminectomy Musculoskeletal Surgical History: Reports: Arthroscopic Knee, Hip Replacement Other Musculoskeletal Surgeries/Procedures:: R knee arthroscopy. R LISY Social & Family History - Family History HEENT: Reports: None - Tobacco Use Smoking Status *Q: Former Smoker Used Tobacco, but Quit: Yes Month/Year Tobacco Last Used: 40 years ago Second Hand Smoke Exposure: No - Caffeine Use Caffeine Use: Reports: Coffee, Tea Caffeine Use Comment: He drinks at least one cup a day. - Recreational Drug Use Recreational Drug Use: No H&P Review of Systems - Review of Systems: Review Of Systems: ROS reveals no pertinent complaints other than HPI. Exam - Exam Exam: See Below - Vital Signs Vital Signs: Last Vital Signs Temp 97.5 F 11/06/18 07:59 Pulse 81 11/06/18 07:59 Resp 18 11/06/18 07:59 BP 143/76 H 11/06/18 07:59 Pulse Ox 94 L 11/06/18 07:59 Weight: 92.306 kg - Exam General: Alert, Oriented, 4 HEENT: PERRLA, Hearing Intact, Mucosa Moist & [place], Nares Patent, Normal Nasal Septum, Posterior Pharynx Clear, Conjunctiva Clear, EOMI, EACs Clear, TMs Clear Neck: Supple, Trachea Midline, 2 Lungs: Decreased Breath Sounds, Rales Cardiovascular: Regular Rate, Regular Rhythm GI/Abdominal Exam: Normal Bowel Sounds, Soft, Non-Tender, No Organomegaly, No Distention, No Abnormal Bruit, No Mass, Pelvis Stable (Male) Exam: Deferred Rectal (Males) Exam: Deferred Back Exam: Normal Inspection, Full Range of Motion, NT Extremities: Normal Inspection, Normal Range of Motion, Non-Tender, No Pedal Edema, Normal Capillary Refill Skin: Warm, Dry, Intact Neurological: Cranial Nerves Intact, Reflexes Equal Bilateral Neuro Extensive - Mental Status: Alert, Oriented x3, Normal Mood/Affect, Normal Cognition Neuro Extensive - Motor, Sensory, Reflexes: CN II-XII Intact, Normal Gait, Normal Reflexes Psychiatric: Alert, Normal Affect, Normal Mood - Patient Data Lab Results Last 24 hrs: Laboratory Results - last 24 hr 11/05/18 11/05/18 11/05/18 Range/Units 23:35 23:35 23:35 WBC 10.3 (4.5-12.0) X10-3/uL RBC 3.90 L (4.30-5.75) x10(6)uL Hgb 10.3 L (13.5-17.8) g/dL Hct 31.0 (30.0-51.3) % MCV 79.6 L (80-96) fL MCH 26.5 L (27.7-33.6) pg MCHC 33.3 (32.2-35.4) g/dL RDW 14.7 (11.5-15.5) % Plt Count 246 (125-369) X10(3)uL MPV 7.3 L (7.4-10.4) fL Add Manual Diff Yes Neutrophils % (Manual) 83 H (46-82) % Band Neutrophils % 3 (0-6) % Lymphocytes % (Manual) 6 L (13-37) % Monocytes % (Manual) 8 (4-12) % PT 11.5 H (8.7-11.1) INR 1.19 H (0.89-1.13) Sodium 131 L (135-145) mmol/L Potassium 4.4 (3.5-5.3) mmol/L Chloride 97 L (100-110) mmol/L Carbon Dioxide 25 (21-32) mmol/L BUN 20 H (7-18) mg/dL Creatinine 1.4 H (0.70-1.30) mg/dL Est Cr Clr Drug Dosing TNP Estimated GFR (MDRD) 50 L (>60) BUN/Creatinine Ratio 14.3 (9-20) Glucose 376 H (80-116) mg/dL Calcium 8.4 L (8.6-10.2) mg/dL NT-Pro-B Natriuret Pep (<=125) pg/mL 11/05/18 Range/Units 23:35 WBC (4.5-12.0) X10-3/uL RBC (4.30-5.75) x10(6)uL Hgb (13.5-17.8) g/dL Hct (30.0-51.3) % MCV (80-96) fL MCH (27.7-33.6) pg MCHC (32.2-35.4) g/dL RDW (11.5-15.5) % Plt Count (125-369) X10(3)uL MPV (7.4-10.4) fL Add Manual Diff Neutrophils % (Manual) (46-82) % Band Neutrophils % (0-6) % Lymphocytes % (Manual) (13-37) % Monocytes % (Manual) (4-12) % PT (8.7-11.1) INR (0.89-1.13) Sodium (135-145) mmol/L Potassium (3.5-5.3) mmol/L Chloride (100-110) mmol/L Carbon Dioxide (21-32) mmol/L BUN (7-18) mg/dL Creatinine (0.70-1.30) mg/dL Est Cr Clr Drug Dosing Estimated GFR (MDRD) (>60) BUN/Creatinine Ratio (9-20) Glucose (80-116) mg/dL Calcium (8.6-10.2) mg/dL NT-Pro-B Natriuret Pep 1031 H* (<=125) pg/mL Result Diagrams: 11/05/18 23:35 11/05/18 23:35 - Problem List (1) COPD (chronic obstructive pulmonary disease) SNOMED Code(s): 13986872 ICD Code: J44.9 - CHRONIC OBSTRUCTIVE PULMONARY DISEASE, UNSPECIFIED Status : Acute Current Visit: Yes Qualifiers: COPD type: chronic bronchitis (2) Chronic pleural effusion SNOMED Code(s): 39170222, 00241627 ICD Code: J90 - PLEURAL EFFUSION, NOT ELSEWHERE CLASSIFIED Status: Acute Current Visit: Yes (3) CAP (community acquired pneumonia) SNOMED Code(s): 154147015 ICD Code: J18.9 - PNEUMONIA, UNSPECIFIED ORGANISM Status: Acute Current Visit: Yes Qualifiers: Laterality: right (4) CAD (coronary artery disease) SNOMED Code(s): 51417580 ICD Code: I25.10 - ATHSCL HEART DISEASE OF [place] CORONARY ARTERY W/O ANG PCTRS Status: Acute Current Visit: Yes Qualifiers: Coronary Disease-Associated Artery/Lesion type: [place] artery (5) HTN (hypertension) SNOMED Code(s): 35734396 ICD Code: I10 - ESSENTIAL (PRIMARY) HYPERTENSION Status: Chronic Current Visit: Yes Qualifiers: Hypertension type: essential hypertension Qualified Code(s): I10 - Essential (primary) hypertension (6) Diabetes type 2, controlled SNOMED Code(s): 77274423, 503276313 ICD Code: E11.9 - TYPE 2 DIABETES MELLITUS WITHOUT COMPLICATIONS Status: Acute Current Visit: Yes Qualifiers: Diabetes mellitus shelter insulin use: with shelter use (7) H/O: stroke SNOMED Code(s): 342210974 ICD Code: Z86.73 - PRSNL HX OF TIA (TIA), AND CEREB INFRC W/O RESID DEFICITS Status: Acute Current Visit: Yes (8) DARI (acute kidney injury) SNOMED Code(s): 25577552 ICD Code: N17.9 - ACUTE KIDNEY FAILURE, UNSPECIFIED Status: Acute Current Visit: Yes Problem List Initiated/Reviewed/Updated: Yes Orders Last 24hrs: Active Orders 24 hr Category Date Time Status Patient Status [ADT] Routine ADT 11/06/18 00:59 Active Cardiac Monitoring [RC] CONTINUOUS Care 11/06/18 01:01 Inactive Oxygen Therapy [RC] PRN Care 11/06/18 00:59 Active Pulse Oximetry [RC] CONTINUOUS Care 11/06/18 01:01 Active RT Aerosol Therapy [RC] ASDIRECTED Care 11/06/18 01:06 Active Up With Assistance [RC] ASDIRECTED Care 11/06/18 00:58 Active VTE/DVT Education [RC] Per Unit Routine Care 11/06/18 00:59 Active Vital Signs [RC] Q4H Care 11/06/18 00:59 Active Heart Healthy Diet [DIET] Diet 11/06/18 Breakfast Ordered CXR [Chest 2V] [CR] Stat Exams 11/05/18 23:32 Ordered BASIC METABOLIC PANEL,BMP [CHEM] AM Lab 11/07/18 05:11 Ordered CBC WITH AUTO DIFF [HEME] AM Lab 11/07/18 05:11 Ordered CULTURE BLOOD [BC] Urgent Lab 11/06/18 01:17 Received CULTURE BLOOD [BC] Urgent Lab 11/06/18 01:25 Received Albuterol [Proventil Neb Soln] Med 11/06/18 01:05 Active 2.5 mg NEB Q4H PRN Levofloxacin/Dextrose 5%-Water [Levaquin in D5W 500 MG/ Med 11/06/18 08:45 Ordered 100 ML] 500 mg Premix Bag 1 bag IV Q24H Sodium Chloride 0.9% [Saline Flush] Med 11/06/18 01:39 Active 10 ml FLUSH ASDIRECTED PRN methylPREDNISolone Sod Succ [Solu-MEDROL] Med 11/06/18 08:45 Ordered 125 mg IVPUSH Q8H Blood Culture x2 Reflex Set [OM.PC] Urgent Oth 11/06/18 01:07 Ordered Peripheral IV Insertion Adult [OM.PC] Routine Oth 11/06/18 01:00 Ordered Resuscitation Status Routine Resus Stat 11/06/18 00:58 Ordered Medication Orders Albuterol (Proventil Neb Soln) 2.5 mg NEB Q4H PRN PRN Reason: sob Last Admin: 11/06/18 03:27 Dose: 2.5 mg Sodium Chloride (Saline Flush) 10 ml FLUSH ASDIRECTED PRN PRN Reason: Keep Vein Open Last Admin: 11/06/18 01:22 Dose: 10 ml Admin: 11/06/18 01:15 Dose: 10 ml Assessment/Plan Comment:: Admit,start Solumedrol,IV and SVNS. I elected Levaquin 500 mg daily for abx. resume home meds,and repeat labs in AM.
[2018-11-06] MEDS: Levofloxacin/Dextrose 5%-Water 500 MG in Premix Bag 1 BAG IV SCH (09:34)
[2018-11-06] MEDS: methylPREDNISolone Sodium Succinate 125 MG/2 ML SDV IVPUSH SCH ×2 (09:45→17:00)
[2018-11-06] MEDS: Carvedilol 12.5 MG Tab PO SCH ×2 (12:15→21:32)
[2018-11-06] MEDS: Tamsulosin 0.4 MG Cap.ER PO SCH (12:16)
[2018-11-06] MEDS: glipiZIDE 5 MG Tab PO SCH ×2 (12:16→17:09)
[2018-11-06] MEDS: Furosemide 40 MG Tab PO SCH ×2 (12:17→16:55)
[2018-11-06] MEDS: amLODIPine 5 MG Tab PO SCH (12:17)
[2018-11-06] MEDS: Famotidine 20 MG Tab PO SCH ×2 (12:17→21:34)
[2018-11-06] MEDS: Gabapentin 300 MG Cap PO SCH ×2 (12:17→21:33)
[2018-11-06] MEDS: Clopidogrel 75 MG Tab PO SCH (12:18)
[2018-11-06] MEDS ORDERED: Insulin Lispro 100 Unit/ML 3 ML KwikPen SUBCUT ONE (12:33)
[2018-11-06] MEDS: Insulin Lispro 100 Unit/ML 3 ML KwikPen SUBCUT SCH ×5 (12:34→18:28)
[2018-11-06] MEDS: Fluticasone Propionate Nasal Spray 16 GM Bottle NASBOTH SCH (12:43)
[2018-11-06] MEDS: Codeine/guaiFENesin 100-10 MG/5 ML Syrup 5 ML Cup PO SCH ×2 (13:43→21:34)
[2018-11-06] MEDS: Albuterol/Ipratropium 3.0-0.5 MG/3 ML Neb Soln NEB SCH ×2 (13:45→18:55)
[2018-11-06] MEDS ORDERED: Acetaminophen 500 MG Tab PO PRN (18:58)
[2018-11-06] MEDS: VILANTER INH SCH (20:18)
[2018-11-06] MEDS: FLUTICASONE INH SCH (20:18)
[2018-11-06] MEDS: UMECLIDIN INH SCH (20:18)
[2018-11-06] MEDS ORDERED: atorvaSTATin 10 MG Tab PO SCH (21:00)
[2018-11-06] MEDS ORDERED: Nortriptyline 25 MG Cap PO SCH (21:30)
[2018-11-07] MEDS: Albuterol/Ipratropium 3.0-0.5 MG/3 ML Neb Soln NEB SCH ×2 (01:22→06:41)
[2018-11-07] MEDS: methylPREDNISolone Sodium Succinate 125 MG/2 ML SDV IVPUSH SCH ×2 (01:31→09:50)
[2018-11-07] MEDS: Sodium Chloride 0.9% 10 ML Syringe FLUSH PRN ×3 (01:34→09:55)
--- NOTE | 2018-11-07 08:42 | PCM.PN ---
- General Info Date of Service: 11/07/18 Subjective Update: Has done very well. Cough is much better. Wishes to go home - Review of Systems General: Reports: No Symptoms HEENT: Reports: No Symptoms Pulmonary: Reports: No Symptoms Gastrointestinal: Reports: No Symptoms Genitourinary: Reports: No Symptoms - Patient Data Vitals - Most Recent: Last Vital Signs Temp 97.7 F 11/07/18 03:00 Pulse 90 11/07/18 03:00 Resp 20 11/07/18 03:00 BP 164/88 H 11/07/18 03:00 Pulse Ox 96 11/07/18 03:00 Weight - Most Recent: 92.306 kg I&O - Last 24 Hours: Intake & Output 11/06/18 11/07/18 11/07/18 22:59 06:59 14:59 Intake Total 150 Output Total 125 Balance 25 Lab Results Last 24 Hours: Laboratory Results - last 24 hr 11/06/18 11/06/18 11/06/18 Range/Units 12:03 12:20 15:58 WBC (4.5-12.0) X10-3/uL RBC (4.30-5.75) x10(6)uL Hgb (13.5-17.8) g/dL Hct (30.0-51.3) % MCV (80-96) fL MCH (27.7-33.6) pg MCHC (32.2-35.4) g/dL RDW (11.5-15.5) % Plt Count (125-369) X10(3)uL MPV (7.4-10.4) fL Add Manual Diff Neutrophils % (Manual) (46-82) % Band Neutrophils % (0-6) % Lymphocytes % (Manual) (13-37) % Monocytes % (Manual) (4-12) % Sodium (135-145) mmol/L Potassium (3.5-5.3) mmol/L Chloride (100-110) mmol/L Carbon Dioxide (21-32) mmol/L BUN (7-18) mg/dL Creatinine (0.70-1.30) mg/dL Est Cr Clr Drug Dosing mL/min Estimated GFR (MDRD) (>60) BUN/Creatinine Ratio (9-20) Glucose 467 H* D (80-116) mg/dL POC Glucose 458 H* D 301 H D (80-116) mg/dL Calcium (8.6-10.2) mg/dL 11/06/18 11/07/18 11/07/18 Range/Units 17:45 06:14 06:14 WBC 8.5 (4.5-12.0) X10-3/uL RBC 3.90 L (4.30-5.75) x10(6)uL Hgb 10.1 L (13.5-17.8) g/dL Hct 31.2 (30.0-51.3) % MCV 80.2 (80-96) fL MCH 25.8 L (27.7-33.6) pg MCHC 32.2 (32.2-35.4) g/dL RDW 14.7 (11.5-15.5) % Plt Count 232 (125-369) X10(3)uL MPV 7.6 (7.4-10.4) fL Add Manual Diff Yes Neutrophils % (Manual) 93 H (46-82) % Band Neutrophils % 3 (0-6) % Lymphocytes % (Manual) 2 L (13-37) % Monocytes % (Manual) 2 L (4-12) % Sodium 135 (135-145) mmol/L Potassium 3.9 (3.5-5.3) mmol/L Chloride 97 L (100-110) mmol/L Carbon Dioxide 29 (21-32) mmol/L BUN 25 H (7-18) mg/dL Creatinine 1.1 (0.70-1.30) mg/dL Est Cr Clr Drug Dosing 66.58 mL/min Estimated GFR (MDRD) > 60 (>60) BUN/Creatinine Ratio 22.7 H (9-20) Glucose 340 H D (80-116) mg/dL POC Glucose 293 H (80-116) mg/dL Calcium 8.8 (8.6-10.2) mg/dL 11/07/18 Range/Units 06:57 WBC (4.5-12.0) X10-3/uL RBC (4.30-5.75) x10(6)uL Hgb (13.5-17.8) g/dL Hct (30.0-51.3) % MCV (80-96) fL MCH (27.7-33.6) pg MCHC (32.2-35.4) g/dL RDW (11.5-15.5) % Plt Count (125-369) X10(3)uL MPV (7.4-10.4) fL Add Manual Diff Neutrophils % (Manual) (46-82) % Band Neutrophils % (0-6) % Lymphocytes % (Manual) (13-37) % Monocytes % (Manual) (4-12) % Sodium (135-145) mmol/L Potassium (3.5-5.3) mmol/L Chloride (100-110) mmol/L Carbon Dioxide (21-32) mmol/L BUN (7-18) mg/dL Creatinine (0.70-1.30) mg/dL Est Cr Clr Drug Dosing mL/min Estimated GFR (MDRD) (>60) BUN/Creatinine Ratio (9-20) Glucose (80-116) mg/dL POC Glucose 350 H (80-116) mg/dL Calcium (8.6-10.2) mg/dL Abimael Results Last 24 Hours: Microbiology 11/06/18 01:17 Aerobic Blood Culture - Preliminary Blood - Venous NO GROWTH AFTER 1 DAY Anaerobic Blood Culture - Preliminary NO GROWTH AFTER 1 DAY 11/06/18 01:25 Aerobic Blood Culture - Preliminary Blood - Venous - Lab Draw NO GROWTH AFTER 1 DAY Anaerobic Blood Culture - Preliminary NO GROWTH AFTER 1 DAY Med Orders - Current: Current Medications Acetaminophen (Tylenol Extra Strength) 1,000 mg PO Q12H PRN PRN Reason: Pain Albuterol (Proventil Neb Soln) 2.5 mg NEB Q4H PRN PRN Reason: sob Last Admin: 11/06/18 09:19 Dose: 2.5 mg Albuterol/Ipratropium (Duoneb 3.0-0.5 Mg/3 Ml) 3 ml NEB Q6H VEENA Last Admin: 11/07/18 06:41 Dose: 3 ml Amlodipine Besylate (Norvasc) 5 mg PO DAILY [facility] Last Admin: 11/06/18 12:17 Dose: 5 mg Atorvastatin Calcium (Lipitor) 10 mg PO BEDTIME VEENA Last Admin: 11/06/18 21:33 Dose: 10 mg Carvedilol (Coreg) 12.5 mg PO BID [facility] Last Admin: 11/06/18 21:32 Dose: 12.5 mg Clopidogrel Bisulfate (Plavix) 75 mg PO DAILY [facility] Last Admin: 11/06/18 12:18 Dose: 75 mg Famotidine (Pepcid) 20 mg PO BID [facility] Last Admin: 11/06/18 21:34 Dose: 20 mg Fluticasone Propionate (Flonase) 0 gm NASBOTH DAILY [facility] Last Admin: 11/06/18 12:43 Dose: 1 spray Furosemide (Lasix) 40 mg PO BIDDIURETIC [facility] Last Admin: 11/06/18 16:55 Dose: 40 mg Gabapentin (Neurontin) 300 mg PO BID [facility] Last Admin: 11/06/18 21:33 Dose: 300 mg Glipizide (Glucotrol) 5 mg PO BIDAC [facility] Last Admin: 11/06/18 17:09 Dose: 5 mg Guaifenesin/Codeine Phosphate (Robitussin Ac) 10 ml PO TID [facility] Last Admin: 11/06/18 21:34 Dose: 10 ml Levofloxacin/Dextrose 500 mg/ (Premix) 100 mls @ 100 mls/hr IV Q24H [facility] Last Admin: 11/06/18 09:34 Dose: 100 mls/hr Insulin Human Lispro (Humalog) 0 unit SUBCUT TIDMEALS [facility]; Protocol Last Admin: 11/06/18 18:20 Dose: 9 units Methylprednisolone Sodium Succinate (Solu-Medrol) 125 mg IVPUSH Q8H [facility] Last Admin: 11/07/18 01:31 Dose: 125 mg Nitroglycerin (Nitrostat) 0.4 mg SL ASDIRECTED PRN PRN Reason: Chest Pain Fluticasone/Umeclidin/Vilanter [ Trelegy Ellipta 100- 62.5Own Med 1 puff INH DAILY [facility] Last Admin: 11/06/18 20:18 Dose: Not Given Nortriptyline HCl (Nortriptyline) 50 mg PO BEDTIME [facility] Last Admin: 11/06/18 21:34 Dose: 50 mg Sodium Chloride (Saline Flush) 10 ml FLUSH ASDIRECTED PRN PRN Reason: Keep Vein Open Last Admin: 11/07/18 01:34 Dose: 10 ml Tamsulosin HCl (Flomax) 0.4 mg PO DAILY [facility] Last Admin: 11/06/18 12:16 Dose: 0.4 mg Discontinued Medications Acetaminophen (Tylenol) 650 mg PO NOW STA Stop: 04/07/19 00:09 Last Admin: 11/06/18 00:18 Dose: 650 mg Albuterol/Ipratropium (Duoneb 3.0-0.5 Mg/3 Ml) 3 ml NEB ONETIME ONE Stop: 11/05/18 23:34 Last Admin: 11/05/18 23:54 Dose: 3 ml Furosemide (Lasix) 20 mg IVPUSH NOW ONE Stop: 11/06/18 00:47 Last Admin: 11/06/18 01:20 Dose: 20 mg Insulin Human Lispro (Humalog) 0 unit SUBCUT TIDMEALS [facility]; Protocol Last Admin: 11/06/18 18:28 Dose: Not Given Insulin Human Lispro (Humalog) 20 unit SUBCUT ONETIME ONE Stop: 11/06/18 12:34 Last Admin: 11/06/18 12:46 Dose: 20 units Methylprednisolone Sodium Succinate (Solu-Medrol) 125 mg IVPUSH ONETIME ONE Stop: 11/06/18 01:07 Last Admin: 11/06/18 01:22 Dose: 125 mg Nortriptyline HCl (Nortriptyline) 50 mg PO BEDTIME VEENA - Exam General: Alert HEENT: Pupils Equal Neck: Supple Lungs: Decreased Breath Sounds Cardiovascular: Regular Rate GI/Abdominal Exam: Normal Bowel Sounds - Problem List & Annotations (1) COPD (chronic obstructive pulmonary disease) SNOMED Code(s): 46658778 Code(s): J44.9 - CHRONIC OBSTRUCTIVE PULMONARY DISEASE, UNSPECIFIED Status : Acute Current Visit: Yes Qualifiers: COPD type: chronic bronchitis (2) Chronic pleural effusion SNOMED Code(s): 79789787, 22444732 Code(s): J90 - PLEURAL EFFUSION, NOT ELSEWHERE CLASSIFIED Status: Acute Current Visit: Yes (3) CAP (community acquired pneumonia) SNOMED Code(s): 298975156 Code(s): J18.9 - PNEUMONIA, UNSPECIFIED ORGANISM Status: Acute Current Visit: Yes Qualifiers: Laterality: right (4) CAD (coronary artery disease) SNOMED Code(s): 86825702 Code(s): I25.10 - ATHSCL HEART DISEASE OF [place] CORONARY ARTERY W/O ANG PCTRS Status: Acute Current Visit: Yes Qualifiers: Coronary Disease-Associated Artery/Lesion type: [place] artery (5) HTN (hypertension) SNOMED Code(s): 31325551 Code(s): I10 - ESSENTIAL (PRIMARY) HYPERTENSION Status: Chronic Current Visit: Yes Qualifiers: Hypertension type: essential hypertension Qualified Code(s): I10 - Essential (primary) hypertension (6) Diabetes type 2, controlled SNOMED Code(s): 02560861, 300412223 Code(s): E11.9 - TYPE 2 DIABETES MELLITUS WITHOUT COMPLICATIONS Status: Acute Current Visit: Yes Qualifiers: Diabetes mellitus halfway insulin use: with halfway use (7) H/O: stroke SNOMED Code(s): 784718699 Code(s): Z86.73 - PRSNL HX OF TIA (TIA), AND CEREB INFRC W/O RESID DEFICITS Status: Acute Current Visit: Yes (8) DARI (acute kidney injury) SNOMED Code(s): 23413277 Code(s): N17.9 - ACUTE KIDNEY FAILURE, UNSPECIFIED Status: Acute Current Visit: Yes - Problem List Review Problem List Initiated/Reviewed/Updated: Yes - My Orders Last 24 Hours: My Active Orders 11/06/18 08:45 Nitroglycerin [Nitrostat] 0.4 mg SL ASDIRECTED PRN 11/06/18 09:00 Fluticasone/Umeclidin/Vilanter [Trelegy Ellipta 100-62.5-25] 1 puff INH DAILY Levofloxacin/Dextrose 5%-Water [Levaquin in D5W 500 MG/100 ML] 500 mg Premix Bag 1 bag IV Q24H methylPREDNISolone Sod Succ [Solu-MEDROL] 125 mg IVPUSH Q8H 11/06/18 10:30 Patient Status [ADT] Routine 11/06/18 11:29 Accu Check [Blood Glucose Check, Bedside] [RC] TIDMEALS 11/06/18 12:00 Carvedilol [Coreg] 12.5 mg PO BID Clopidogrel [Plavix] 75 mg PO DAILY Famotidine [Pepcid] 20 mg PO BID Fluticasone Propionate [Flonase] 0 gm NASBOTH DAILY Furosemide [Lasix] 40 mg PO BIDDIURETIC Gabapentin [Neurontin] 300 mg PO BID Tamsulosin [Flomax] 0.4 mg PO DAILY amLODIPine [Norvasc] 5 mg PO DAILY glipiZIDE [Glucotrol] 5 mg PO BIDAC 11/06/18 12:52 RT Aerosol Therapy [RC] ASDIRECTED 11/06/18 13:00 Albuterol/Ipratropium [DuoNeb 3.0-0.5 MG/3 ML] 3 ml NEB Q6H 11/06/18 14:00 Codeine/guaiFENesin [Robitussin AC] 10 ml PO TID 11/06/18 18:00 Insulin Lispro [HumaLOG] See Protocol SUBCUT TIDMEALS 11/06/18 18:58 Acetaminophen [Tylenol Extra Strength] 1,000 mg PO Q12H PRN 11/06/18 21:00 atorvaSTATin [Lipitor] 10 mg PO BEDTIME 11/06/18 21:30 Nortriptyline 50 mg PO BEDTIME - Plan Plan:: May DC home today,with antibiotics and Prednisone.He has an appt with Cardiothoracic Sx tomorrow
[2018-11-07] MEDS: Furosemide 40 MG Tab PO SCH (09:50)
[2018-11-07] MEDS: glipiZIDE 5 MG Tab PO SCH (09:50)
[2018-11-07] MEDS: Clopidogrel 75 MG Tab PO SCH (09:51)
[2018-11-07] MEDS: Carvedilol 12.5 MG Tab PO SCH (09:51)
[2018-11-07] MEDS: amLODIPine 5 MG Tab PO SCH (09:51)
[2018-11-07 09:52] VITALS: BP 168/84
[2018-11-07] MEDS: Famotidine 20 MG Tab PO SCH (09:52)
[2018-11-07] MEDS: Fluticasone Propionate Nasal Spray 16 GM Bottle NASBOTH SCH (09:53)
[2018-11-07] MEDS: Tamsulosin 0.4 MG Cap.ER PO SCH (09:54)
[2018-11-07] MEDS: Levofloxacin/Dextrose 5%-Water 500 MG in Premix Bag 1 BAG IV SCH (09:55)
[2018-11-07] MEDS: Insulin Lispro 100 Unit/ML 3 ML KwikPen SUBCUT SCH (10:05)
[2018-11-07] MEDS: UMECLIDIN INH SCH (10:10)
[2018-11-07] MEDS: FLUTICASONE INH SCH (10:10)
[2018-11-07] MEDS: VILANTER INH SCH (10:10)
[2018-11-07] MEDS: Gabapentin 300 MG Cap PO SCH (10:36)
[2018-11-07] MEDS: Codeine/guaiFENesin 100-10 MG/5 ML Syrup 5 ML Cup PO SCH (10:36)
--- NOTE | 2018-11-08 12:56 | DISCH ---
DISCHARGE DATE: 11/07/2018 REASON FOR ADMISSION: 1. Pleural effusion. 2. Community-acquired pneumonia. 3. History of chronic obstructive pulmonary disease. 4. Type 2 diabetes. 5. History of stroke. BRIEF HISTORY AND HOSPITAL COURSE: A 73-year-old male who has a history of chronic pleural effusion on the right side. He has had multiple workups and was found to have mediastinal lymphadenopathy but no discernible cause. He came in with cough that would not stop, difficulty breathing for a few days. The x-ray revealed possible infiltrate, along with a chronic pleural effusion on the right. He was placed on Levaquin, prednisone, and Robitussin with Codeine with some improvement over 24 hours. He feels ready to go home today. DISCHARGE MEDICATIONS: 1. Robitussin with Codeine 10 mL every 6 hours p.r.n. 2. Levaquin 500 mg daily for 7 more days. 3. Prednisone 20 mg b.i.d. for 5 days. He will also go home on his regular home medications, which are: 1. Lipitor 10 mg at bedtime. 2. Norvasc 5 mg a day. 3. Plavix 75 mg a day. 4. Famotidine 20 mg b.i.d. 5. Furosemide 40 mg b.i.d. 6. Glipizide 5 mg b.i.d. 7. Gabapentin 300 mg b.i.d. 8. Flomax 0.4 mg daily. He will expect to have his sugars up because of the prednisone. FOLLOWUP: He is advised to see his PCP in 1 week, but he has an appointment with Cardiothoracic Surgery tomorrow to remove the device on the right side for effusion. Please note that I spent more than 35 minutes in the discharge of this patient. /[id number] TRISTIAN/CATARINO
== END 2018-11-07 11:15 | disposition home or self-care (01) | DRG 190 ==
LOC: FB.ED 22:49 → FB.MS 11-06 00:58 → OBSVTOIN 11-06 10:30
PROVIDERS: ADMIT Family Medicine; ATTEND Family Medicine
DX: J44.0 Chronic obstructive pulmonary disease with (acute) lower respiratory infection (principal); J18.9 Pneumonia, unspecified organism; E87.1 Hypo-osmolality and hyponatremia; N17.9 Acute kidney failure, unspecified; I11.0 Hypertensive heart disease with heart failure; I50.9 Heart failure, unspecified; R09.02 Hypoxemia; H54.7 Unspecified visual loss; E11.319 Type 2 diabetes mellitus with unspecified diabetic retinopathy without macular edema; I25.10 Atherosclerotic heart disease of native coronary artery without angina pectoris; E11.51 Type 2 diabetes mellitus with diabetic peripheral angiopathy without gangrene; I73.9 Peripheral vascular disease, unspecified; N40.0 Benign prostatic hyperplasia without lower urinary tract symptoms; Z79.02 Long term (current) use of antithrombotics/antiplatelets; M19.90 Unspecified osteoarthritis, unspecified site; G51.0 Bell's palsy; R06.03 Acute respiratory distress; R05 Cough; M25.471 Effusion, right ankle; R06.02 Shortness of breath; R07.9 Chest pain, unspecified; Z95.5 Presence of coronary angioplasty implant and graft; Z90.49 Acquired absence of other specified parts of digestive tract; Z79.899 Other long term (current) drug therapy; Z95.2 Presence of prosthetic heart valve; Z79.84 Long term (current) use of oral hypoglycemic drugs; Z96.649 Presence of unspecified artificial hip joint; Z86.73 Personal history of transient ischemic attack (TIA), and cerebral infarction without residual deficits; Z87.891 Personal history of nicotine dependence
CPT/HCPCS: 36415 ×2; 71046; 80048; 83880; 85025; 85610; 87040 ×2; 94640 ×3; 96374; 96375; 99285; A9270; J1940; J1956; J2930 ×2; 82947; 82962; J1815; J7620-GY

== ENCOUNTER 2020-05-22 15:33 | Inpatient (IN) | payer MEDICARE, BC ==
[2020-05-22] MEDS ORDERED: Furosemide 100 MG/10 ML SDV IVPUSH ONE (16:30)
[2020-05-22] MEDS: Sodium Chloride 0.9% 10 ML Syringe FLUSH PRN ×2 (16:37→16:45)
[2020-05-22] MEDS ORDERED: Nitroglycerin 0.4 MG Tab.SL SL PRN (17:00)
[2020-05-22] MEDS: Furosemide 40 MG/4 ML VIAL IVPUSH SCH (19:53)
[2020-05-22] MEDS: methylPREDNISolone Sodium Succinate 40 MG/1 ML SDV IVPUSH SCH (20:01)
[2020-05-22] MEDS: Levofloxacin/Dextrose 5%-Water 500 MG in Premix Bag 1 BAG IV SCH (20:06)
[2020-05-22] MEDS: Gabapentin 300 MG Cap PO SCH (20:06)
[2020-05-22] MEDS: Carboxymethylcellulose Sodium 0.5% Ophth Soln 15 ML Bottle EYEBOTH SCH (20:06)
[2020-05-22] MEDS ORDERED: Acetaminophen 325 MG Tab PO PRN (20:25)
[2020-05-22] MEDS ORDERED: Carvedilol 6.25 MG Tab PO SCH (21:00)
[2020-05-23] MEDS: methylPREDNISolone Sodium Succinate 40 MG/1 ML SDV IVPUSH SCH ×2 (01:05→09:28)
[2020-05-23] MEDS: Furosemide 40 MG/4 ML VIAL IVPUSH SCH ×2 (01:05→09:28)
[2020-05-23] MEDS: Carvedilol 6.25 MG Tab PO SCH ×2 (08:48→20:45)
[2020-05-23] MEDS: Tamsulosin 0.4 MG Cap.ER PO SCH (08:56)
[2020-05-23] MEDS: Roflumilast 500 MCG Tab PO SCH (08:56)
[2020-05-23] MEDS: Carboxymethylcellulose Sodium 0.5% Ophth Soln 15 ML Bottle EYEBOTH SCH ×2 (08:57→20:44)
[2020-05-23] MEDS: Clopidogrel 75 MG Tab PO SCH (08:58)
[2020-05-23] MEDS ORDERED: Furosemide 40 MG Tab PO SCH (09:00)
[2020-05-23] MEDS: Gabapentin 300 MG Cap PO SCH ×3 (09:28→20:43)
[2020-05-23] MEDS: Sodium Chloride 0.9% 10 ML Syringe FLUSH PRN ×2 (09:29→18:19)
[2020-05-23] MEDS ORDERED: 50% Dextrose in Water 50 ML Syringe IVPUSH PRN ×2 (10:09→22:56)
[2020-05-23] MEDS ORDERED: Glucagon,Human Recombinant 1 MG Vial IM PRN ×2 (10:09→22:56)
--- NOTE | 2020-05-23 11:20 | PN ---
DATE SEEN: 05/23/2020 Inpatient care for pleural effusion, pneumonia, underlying COPD. SUBJECTIVE: Claude Bhatia is a 75-year-old male admitted on 05/22 for acute respiratory issue. Had been seen in the clinic by Dr. Klein. Had a good night. Need for O2 absent, though uses O2 at home. Sugars are markedly elevated due to concomitant use of steroids. Accu-Cheks and medium dose insulin will be instituted, we will hold off on the Glucotrol. Had a nice diuresis from furosemide. We will decrease from 40 IV q.8 hours to 40 mg q.a.m. He is presently on levofloxacin antibiotic therapy, inhalation therapy, and steroids. Had a pretty good day. Spoke to Dr. Brown. Plan is for consultation of thoracentesis later today. Decubitus films performed revealed a nice layering of the fluid. Otherwise, no particular issues. LABORATORY STUDIES: White count 26,400, platelet count 276,000, 89% lymphs, 31% chloride 94, BUN 21, creatinine 1.4, glucose 342 on steroids, BNP 274. OBJECTIVE: VITAL SIGNS: Weight . HEENT: Mouth and oropharynx clear. NECK: No JVD. CHEST: Decreased breath sounds, rales. Lower 1/2 left lower lung field posteriorly. HEART: Distant heart sounds. No significant murmur. ABDOMEN: Benign. EXTREMITIES: Minimal edema in lower extremity. ASSESSMENT: 1. Acute exacerbation of chronic obstructive lung disease. 2. Questionable history of congestive heart failure. 3. Diabetes mellitus. PLAN: Medications, care, and treatment appropriate. We will make adjustments accordingly. Accu-Cheks will be evolved, medium dose insulin, hold Glucotrol in the meantime. /[id number] BRICE/CATARINO
--- NOTE | 2020-05-23 11:48 | CR ---
INDICATION: Dyspnea. CHEST, TWO VIEWS: PA, right lateral decubitus, and lateral views of the chest were obtained 05/23/20 and compared with 11/05/18 and 04/28/17. There appears to be decreased pleuroparenchymal change at the right lower lung field with the area of increased density possibly representing loculated pleural fluid and/or pleural thickening. Somewhat heavy markings in that area raise question of pneumonia, possibly with pleuritis. This appearance could also be on the basis of fibrosis - pleuroparenchymal. The lateral decubitus view does not show a significant amount of moveable pleural effusion - little change in appearance is seen in that area. The right lung and pleural space appear negative for an acute process. Transaortic valve replacement is again noted. The heart is at the upper limits of normal in size with a left ventricular monitor in place anteriorly. Diminished bone density suggests the possibility of osteoporosis. Minimal flowing hyperostotic changes are noted anteriorly which may represent early DISH. Examination was also compared with clinic films from 05/22/20 with no significant interval change in appearance. IMPRESSION: 1. Non-moveable pleural changes at the right lung base, most likely related to pleural fibrosis, possibly with loculated pleural effusion. The possibility of pulmonary fibrosis in that area versus patchy pneumonia and pleuritis would be unable to be determined - correlate clinically. 2. ASHD with mild cardiomegaly. MTDD
[2020-05-23] MEDS ORDERED: Insulin Lispro 100 Unit/ML 3 ML KwikPen SUBCUT ONE (12:08)
[2020-05-23] MEDS: Insulin Lispro 100 Unit/ML 3 ML KwikPen SUBCUT SCH ×2 (12:11→18:24)
--- NOTE | 2020-05-23 12:18 | HP ---
ADMISSION DATE: 05/22/2020 REASON FOR VISIT: Respiratory difficulty, underlying COPD, and heart disease. HISTORY OF PRESENT ILLNESS: Dejan Bhatia is a 75-year-old male from [place] who was seen by Dr. Klein at [facility] on mid afternoon of 05/22. Presented with complicated cough, respiratory difficulty, low O2 sats, and radiographic evidence of left pneumonia and/or pleural effusion. Indication for hospitalization noted. He has had a significant cardiorespiratory issue. MEDICATIONS: Daily medications include: 1. Plavix 75 mg 1 p.o. daily, heart. 2. Pepcid 20 mg 1 p.o. b.i.d., GERD. 3. Coreg 6.25 mg half a tab b.i.d., heart/blood pressure. 4. Neurontin 300 mg 1 p.o. t.i.d., neuropathic pain. 5. Protonix 40 mg 1 p.o. daily, GERD. 6. Flonase 1 puff each nostril, allergic rhinitis. 7. Albuterol inhaler q.i.d. p.r.n. 8. Trelegy 100/62.5/25 one puff once daily, COPD. 9. Glucotrol 5 mg 1 p.o. b.i.d., NIDDM. 10.Furosemide 40 mg 1 p.o. daily, heart/lungs. 11.Tamsulosin 0.4 mg 1 p.o. daily, BPH. 12.Daliresp 500 mg 1 p.o. daily, COPD. 13.Atorvastatin 10 mg 1 p.o. daily, hyperlipidemia. 14.Pamelor 50 mg p.o. at bedtime, sleep enhancement. 15.Vitamin D 1000 units b.i.d., nutrition. 16.Acetaminophen p.r.n. 17.Nitrostat p.r.n. ALLERGIES: No medication, environmental, or latex allergies. PAST HEALTH: Significant for surgical procedures which included multiple eye surgeries for macular degeneration. He has had in 2016 heart catheterization and transfemoral aortic valve implantation. He has had a previous left hip fracture and replacement in 2017, lumbar laminectomy in 2015. He has had bilateral cataract surgeries and multiple knee scopes. Chronic illnesses include significant COPD, NIDDM, gastroesophageal reflux, and BPH. He has also had a laparoscopic cholecystectomy. SOCIAL HISTORY: Lives in [place]. 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 72, 3 kids, 4 grand kids. Quit smoking in 1980, secondhand smoke and environmental smoke an issue. No alcohol. No illicit drug use. FAMILY HISTORY: Negative for early heart disease, diabetes mellitus, or inheritable cancer. REVIEW OF SYSTEMS: A 13-bullet review of systems noted, pertinent positives noted in HPI. All others considered normal and negative without complicating issue. PHYSICAL EXAMINATION: VITAL SIGNS: 36.6, 89, 160/77, 19, 94% on room air. GENERAL: Appears comfortable. Speech was fluent. Orientated to time, place, and person. HEENT: Funduscopic benign. Conjunctivae clear. Bright tympanic membranes. Decreased hearing. Clear nasal discharge. Mouth and oropharynx reveal fair dentition. Some absent teeth. NECK: Benign. Thyroid small. CHEST: Decreased breath sounds, lower 1/2 left lung field posteriorly. HEART: Distant heart sounds. Soft murmur. ABDOMEN: Benign. Surgical scars were noted. No hepatosplenomegaly. GENITOURINARY and RECTAL: Deferred. EXTREMITIES: Well perfused. NEUROMUSCULAR: Intact. LABORATORY STUDIES: White count 5500, hemoglobin 12.1, hematocrit 36.8, 80% neutrophils. Sodium 131, BUN 21, creatinine 1.4, GFR 49. Glucose 342. Mildly elevated alkaline phosphatase. RADIOGRAPHS: Left lower lobe effusion. ASSESSMENT: A 75-year-old gentleman presents with acute respiratory distress, large pleural effusion, cardiac versus infectious in nature. PLAN: Admission to hospital is indicated. We will place on IV antibiotics, short course of intravenous corticosteroids. Consultation planned with Dr. Brown for thoracentesis. We will monitor sugars and medications accordingly. /[id number] BRICE/CATARINO
[2020-05-23] MEDS: TRELEGY ELLIPTA INH SCH (16:54)
[2020-05-23] MEDS: Levofloxacin/Dextrose 5%-Water 500 MG in Premix Bag 1 BAG IV SCH (18:19)
--- NOTE | 2020-05-23 18:47 | CONS ---
DATE OF CONSULTATION: 05/23/2020 HISTORY OF PRESENT ILLNESS: This patient is seen at the request of Dr. Sims for respiratory issues, shortness of breath, and possible need for thoracentesis, which he has had several times in the past. The patient was admitted two days ago with cough, respiratory difficulties, low O2 saturation, and possible pleural effusion or pneumonia. He is feeling better today, and according to the nurse, he has diuresed which has helped. Today, he is in no respiratory distress, but is on supplemental oxygen. I have reviewed his records and chest x-ray. He does have some fibrosis or possible early pneumonia in the lower right lung base, but certainly not a large enough pleural effusion that I could safely aspirate. I do not feel this is contributing to his symptoms. PHYSICAL EXAMINATION: GENERAL: On exam, he is awake, alert, and in no acute distress. LUNGS: Do have diffuse crackles throughout. He is not using any accessory respiratory muscles. He can speak full sentences without becoming short of breath. ASSESSMENT: Shortness of breath due to pleural fibrosis. PLAN: No thoracentesis is indicated at this time. I called the patient's to discuss this. 25 minutes was spent with the patient and reviewing his records. /[id number] NICCI/CATARINO
[2020-05-23] MEDS: Albuterol 0.083% 2.5 MG/3 ML Neb Soln NEB PRN ×2 (19:00→22:03)
[2020-05-23] MEDS ORDERED: methylPREDNISolone Sodium Succinate 40 MG/1 ML SDV IVPUSH SCH (22:00)
[2020-05-24] MEDS ORDERED: Metolazone 2.5 MG Tab PO ONE (08:00)
[2020-05-24] MEDS: Insulin Lispro 100 Unit/ML 3 ML KwikPen SUBCUT SCH ×3 (08:20→17:39)
[2020-05-24] MEDS: Carvedilol 6.25 MG Tab PO SCH ×2 (08:23→20:13)
[2020-05-24] MEDS: Roflumilast 500 MCG Tab PO SCH (08:24)
[2020-05-24] MEDS: Tamsulosin 0.4 MG Cap.ER PO SCH (08:24)
[2020-05-24] MEDS: TRELEGY ELLIPTA INH SCH (08:25)
[2020-05-24] MEDS: Insulin Glargine,Human Rec. Analog 100 Units/ML 3 ML Pen SUBCUT SCH ×2 (08:27→20:17)
[2020-05-24] MEDS ORDERED: Insulin Glargine,Human Rec. Analog 100 Units/ML 3 ML Pen SUBCUT ONE (08:27)
[2020-05-24] MEDS: Carboxymethylcellulose Sodium 0.5% Ophth Soln 15 ML Bottle EYEBOTH SCH ×2 (08:31→20:14)
[2020-05-24] MEDS: Clopidogrel 75 MG Tab PO SCH (08:31)
[2020-05-24] MEDS: Furosemide 40 MG Tab PO SCH ×2 (08:31→13:58)
[2020-05-24] MEDS: Gabapentin 300 MG Cap PO SCH ×2 (08:31→20:14)
[2020-05-24] MEDS ORDERED: Gabapentin 300 MG Cap PO SCH (09:00)
[2020-05-24] MEDS ORDERED: Furosemide 40 MG Tab PO SCH (09:00)
--- NOTE | 2020-05-24 12:14 | PN ---
DATE SEEN: 05/24/2020 HISTORY: Claude is a 75-year-old man with a history of VFib arrest and resuscitation and severe COPD with pulmonary fibrosis. He was admitted after 2 weeks of cough, increasing shortness of breath, and weakness. On admission, he was found to have a slightly enlarged right pleural effusion with possible right basilar infiltrate. Electrolytes were unremarkable and CBC normal. The patient was diuresed with IV Lasix. He was started on IV Levaquin and intravenous steroid. Consultation from Dr. Brown was held regarding possible thoracentesis. However, the effusion did not sole layer on decubitus view and it was felt to be loculated with significant risk to the thoracentesis. This morning, Claude states he feels better. He is not having fever, chills, sweats, chest pain. He still has a mild cough productive of clear to white phlegm. PHYSICAL EXAMINATION: VITAL SIGNS: Blood pressure 154/77, pulse 89 and regular, respirations 18, O2 saturation 100% on 2 L nasal cannula, weight 175 pounds 5 ounces. SKIN: Shows no rash or trauma. Mouth is dry. LUNGS: Have rales at the left base and absent breath sounds to the right lower one-third. HEART: Regular without murmur or gallop. ABDOMEN: Soft. EXTREMITIES: Show no edema at the ankles. LABORATORY DATA: Blood sugars have ranged from 330 to 269. ASSESSMENT: 1. Right lower lobe pneumonia. 2. Pleural effusion. 3. Severe pulmonary fibrosis with chronic obstructive pulmonary disease. 4. History of painful peripheral neuropathy. 5. Severe hyperglycemia exacerbated by IV steroid. PLAN: We will add incentive spirometry. Continue IV antibiotics and diuresis. Increase activity as tolerated. I anticipate another 48 to 72 hours of acute inpatient hospital stay followed by return to home when able. /[id number] TSERING/CATARINO
[2020-05-24] MEDS: Albuterol 0.083% 2.5 MG/3 ML Neb Soln NEB PRN ×2 (14:00→20:16)
[2020-05-24] MEDS: Levofloxacin/Dextrose 5%-Water 500 MG in Premix Bag 1 BAG IV SCH (17:17)
[2020-05-24] MEDS: Sodium Chloride 0.9% 10 ML Syringe FLUSH PRN (18:45)
[2020-05-24] MEDS: Codeine/guaiFENesin 10-100 MG/5 ML Syrup 5 ML Cup PO PRN (20:16)
[2020-05-25] MEDS ORDERED: Metolazone 2.5 MG Tab PO ONE (08:09)
[2020-05-25] MEDS: Insulin Lispro 100 Unit/ML 3 ML KwikPen SUBCUT SCH ×3 (08:29→17:38)
[2020-05-25] MEDS: Roflumilast 500 MCG Tab PO SCH (08:30)
[2020-05-25] MEDS: Furosemide 40 MG Tab PO SCH ×2 (08:30→13:47)
[2020-05-25] MEDS: Tamsulosin 0.4 MG Cap.ER PO SCH (08:31)
[2020-05-25] MEDS: Carvedilol 6.25 MG Tab PO SCH ×2 (08:31→20:49)
[2020-05-25] MEDS: Gabapentin 300 MG Cap PO SCH ×2 (08:32→20:48)
[2020-05-25] MEDS: Potassium Chloride 10 MEQ Tab.ER PO SCH (08:32)
[2020-05-25] MEDS: TRELEGY ELLIPTA INH SCH (08:32)
[2020-05-25] MEDS: Insulin Glargine,Human Rec. Analog 100 Units/ML 3 ML Pen SUBCUT SCH ×2 (08:32→20:50)
[2020-05-25] MEDS: Clopidogrel 75 MG Tab PO SCH (08:33)
[2020-05-25] MEDS: Carboxymethylcellulose Sodium 0.5% Ophth Soln 15 ML Bottle EYEBOTH SCH ×2 (08:33→20:49)
--- NOTE | 2020-05-25 09:17 | PN ---
DATE SEEN: 05/25/2020 HISTORY: Claude is a 75-year-old man with a history of a VFib arrest and resuscitation and severe fibrotic pulmonary compromise with COPD. He has been on oxygen at home nocturnally, but over the preceding couple of weeks has had a persistent cough, increasing dyspnea and weakness. He was treated as an outpatient for bronchitis without much improvement and he was admitted to [facility] on May 22. He is on Levaquin for suspected right lower lobe pneumonia. He has a right lower lung pleural effusion and echocardiogram just completed showed an ejection fraction of approximately 57% He states he feels slightly better this morning. PHYSICAL EXAMINATION: VITAL SIGNS: Blood pressure 148/80, pulse 86 and regular, temperature 97.9, O2 saturation 97% on 2 L nasal cannula. Weight 171 pounds, this is down 4 pounds in the past 2 days. SKIN: Shows no rash or trauma. MOUTH: Dry. LUNGS: Clear in the upper lung flores. He has slight rales at the left base and moderate rales at the right base with now improvement in air flow to the right base compared to yesterday. There was still some vesicular sounds and suggestion of residual pleural effusion at the right base. HEART: Regular without murmur or gallop. ABDOMEN: Soft and nontender. EXTREMITIES: Show no edema at the ankles. LABORATORY DATA: Sodium 134, potassium 3.2, creatinine 1.2, albumin 3.1. ASSESSMENT: 1. Right pleural effusion with likely pneumonia, right base. 2. Hypokalemia. 3. Severe fibrotic pulmonary chronic obstructive pulmonary disease. 4. Type 2 diabetes, recent exacerbation from steroid. 5. History of compensated congestive heart failure post ventricular fibrillation arrest. 6. History of painful peripheral neuropathy. PLAN: Will diurese him slightly more. Continue with Levaquin. Increase activity. Continue the pulmonary toilet, his blood sugar control and anticipate another 24 to 48 hours of acute hospital stay followed by discharge to home. /[id number] TSERING/CATARINO
[2020-05-25] MEDS: Albuterol 0.083% 2.5 MG/3 ML Neb Soln NEB PRN (16:07)
[2020-05-25] MEDS: Levofloxacin/Dextrose 5%-Water 500 MG in Premix Bag 1 BAG IV SCH (17:20)
[2020-05-25] MEDS: Sodium Chloride 0.9% 10 ML Syringe FLUSH PRN (18:20)
[2020-05-25] MEDS: Codeine/guaiFENesin 10-100 MG/5 ML Syrup 5 ML Cup PO PRN (20:49)
[2020-05-26] MEDS: Insulin Glargine,Human Rec. Analog 100 Units/ML 3 ML Pen SUBCUT SCH ×2 (08:20→20:37)
[2020-05-26] MEDS: Insulin Lispro 100 Unit/ML 3 ML KwikPen SUBCUT SCH ×3 (08:21→17:34)
[2020-05-26] MEDS: Carvedilol 6.25 MG Tab PO SCH (08:22)
[2020-05-26] MEDS: Tamsulosin 0.4 MG Cap.ER PO SCH (08:23)
[2020-05-26] MEDS: Roflumilast 500 MCG Tab PO SCH (08:23)
[2020-05-26] MEDS: TRELEGY ELLIPTA INH SCH (08:24)
[2020-05-26] MEDS: glipiZIDE 5 MG Tab.ER PO SCH (08:27)
[2020-05-26] MEDS: Potassium Chloride 10 MEQ Tab.ER PO SCH (08:28)
[2020-05-26] MEDS: Clopidogrel 75 MG Tab PO SCH (08:28)
[2020-05-26] MEDS: Carboxymethylcellulose Sodium 0.5% Ophth Soln 15 ML Bottle EYEBOTH SCH ×2 (08:28→20:37)
[2020-05-26] MEDS: Levofloxacin 500 MG Tab PO SCH ×2 (08:29→10:38)
[2020-05-26] MEDS ORDERED: Furosemide 40 MG Tab PO SCH (09:00)
[2020-05-26] MEDS: Codeine/guaiFENesin 10-100 MG/5 ML Syrup 5 ML Cup PO PRN (20:36)
[2020-05-26] MEDS: Albuterol 0.083% 2.5 MG/3 ML Neb Soln NEB PRN (20:36)
[2020-05-26] MEDS: Fludrocortisone 0.1 MG Tab PO SCH (20:37)
--- NOTE | 2020-05-27 06:45 | PN ---
DATE SEEN: 05/26/2020 HISTORY: Claude is a 75-year-old man who was admitted for persistent cough and shortness of breath, who failed outpatient treatment. He was found to have a significant effusion in his right lower lung with possible pneumonia. He was admitted. He has been on IV Levaquin and diuresis. He has lost 10 pounds since admission. His pleural effusion was quite loculated and not amenable to simple thoracentesis. PHYSICAL EXAMINATION: GENERAL: This morning examined in his chair, he reports he has no appetite. VITAL SIGNS: He remains afebrile. Blood pressure 120/60, pulse 80, and respirations 20. He also denies any leg pain or pain elsewhere. HEENT: Clear. LUNGS: Have fine rales at the left base. He has somewhat coarse rales at the right base with diminished breath sounds, but some air movement is audible to the base. HEART: Regular without murmur. ABDOMEN: Soft. EXTREMITIES: Show no edema. LABORATORY DATA: Blood sugar 239. ASSESSMENT: 1. Right lower lobe pneumonia with effusion. 2. Type 2 diabetes, exacerbated by recent steroid. 3. Hypokalemia. 4. History of ventricular fibrillation arrest with congestive heart failure compensated. PLAN: We will resume his oral glipizide. Continue his current insulin. Increase his activity as well as pulmonary toilet. We will plan to recheck a chest x-ray in the morning and discharge within 24 to 48 hours if he continued to improve. /[id number] Brendan CAGLE/CATARINO
[2020-05-27] MEDS: Insulin Lispro 100 Unit/ML 3 ML KwikPen SUBCUT SCH ×3 (08:30→17:33)
[2020-05-27] MEDS: Tamsulosin 0.4 MG Cap.ER PO SCH (08:31)
[2020-05-27] MEDS: Roflumilast 500 MCG Tab PO SCH (08:31)
[2020-05-27] MEDS: TRELEGY ELLIPTA INH SCH (08:32)
[2020-05-27] MEDS: Insulin Glargine,Human Rec. Analog 100 Units/ML 3 ML Pen SUBCUT SCH ×2 (08:32→20:17)
[2020-05-27] MEDS: Carboxymethylcellulose Sodium 0.5% Ophth Soln 15 ML Bottle EYEBOTH SCH ×2 (08:33→20:14)
[2020-05-27] MEDS: Clopidogrel 75 MG Tab PO SCH (08:33)
[2020-05-27] MEDS: Potassium Chloride 10 MEQ Tab.ER PO SCH (08:35)
[2020-05-27] MEDS: glipiZIDE 5 MG Tab.ER PO SCH (08:36)
[2020-05-27] MEDS ORDERED: Lactulose Soln 10 GM/15 ML 15 ML UD Cup PO ONE (08:58)
[2020-05-27] MEDS: Levofloxacin 500 MG Tab PO SCH (09:28)
[2020-05-27] MEDS ORDERED: Sodium Chloride 0.65% Nasal Spray 45 ML Bottle NASBOTH PRN (09:32)
--- NOTE | 2020-05-27 11:02 | PN ---
DATE SEEN: 05/27/2020 HISTORY: Claude is a 75-year-old man who was admitted with right lower lobe effusion and pneumonia. He was diuresed of approximately 10 pounds and treated with IV Levaquin. His breathing slowly improved, but he has become significantly orthostatic, having near syncopal episodes on at least 3 occasions when standing. This morning, he feels somewhat unwell. He states he did not sleep well because of urinary frequency and bladder spasms. He has not had fever, chills. His cough is improved. He is not feeling short of breath. PHYSICAL EXAM: GENERAL: He is alert and appears comfortable sitting. VITAL SIGNS: Blood pressure 154/82, sitting; pulse is 82 and regular; weight 168 pounds, this is down from 175 on admission; O2 saturation 97% on 2 L nasal cannula. HEENT: Throat is clear. LUNGS: Clear in the upper lung flores. He has diminished breath sounds at the right base and scattered rhonchi. HEART: Regular without murmur or gallop. ABDOMEN: Soft. No significant tenderness. No mass, guarding, or rebound. EXTREMITIES: No edema. LABORATORY DATA: Blood sugar 112 yesterday afternoon and 170 last evening. ASSESSMENT: 1. Right lower lobe pneumonia with effusion, improving. 2. Orthostatic hypotension due to aggressive diuresis. 3. Severe pulmonary fibrosis with chronic obstructive pulmonary disease. 4. Type 2 diabetes. 5. Benign prostatic hypertrophy. PLAN: His antibiotic is switched from IV to oral. We will collect the urinalysis, discontinue his furosemide, increase activity as tolerated, and anticipate discharge in 24 hours. /[id number] TSERING/LORETTAL
--- NOTE | 2020-05-27 11:11 | CR ---
INDICATION: Cough. CHEST, TWO VIEWS: AP and two lateral views of the chest were obtained 05/27/20 and compared with 05/23/20 and 11/05/18. Apparent pleuroparenchymal changes are still noted at the right lower lung field and lung base and may, as mentioned previously, represent fibrotic changes in the lung and pleura, possibly with loculated pleural effusion. No significant change in that area is identified to strongly suggest an acute process. Again, however, the possibility of a superimposed area of pneumonia and pleuritis, on fibrosis, cannot be excluded in that region. The left lung and pleural space remain unremarkable. The heart may be at the upper limits of normal in size. The aorta is tortuous with calcification in the aorta and valve replacement. Left ventricular recorder is again seen. Overlying EKG leads are noted. IMPRESSION: Stable chest. No definite acute process. MTDD
[2020-05-27] MEDS ORDERED: EUCERIN TOP PRN (13:25)
[2020-05-27] MEDS ORDERED: BIOFREEZE TOP PRN (13:26)
[2020-05-27] MEDS: Fludrocortisone 0.1 MG Tab PO SCH (20:14)
[2020-05-28] MEDS: Tamsulosin 0.4 MG Cap.ER PO SCH (07:59)
[2020-05-28] MEDS: TRELEGY ELLIPTA INH SCH (07:59)
[2020-05-28] MEDS: Roflumilast 500 MCG Tab PO SCH (07:59)
[2020-05-28] MEDS: Clopidogrel 75 MG Tab PO SCH (07:59)
[2020-05-28] MEDS: Carboxymethylcellulose Sodium 0.5% Ophth Soln 15 ML Bottle EYEBOTH SCH (07:59)
[2020-05-28] MEDS ORDERED: glipiZIDE 5 MG Tab.ER PO SCH (09:00)
[2020-05-28] MEDS ORDERED: Potassium Chloride 20 MEQ Tab.ER PO SCH (09:00)
[2020-05-28] MEDS: Levofloxacin 500 MG Tab PO SCH (09:02)
--- NOTE | 2020-05-28 11:11 | DISCH ---
DISCHARGE DATE: 05/28/2020 PRIMARY FINAL DIAGNOSES: 1. Right lower lobe pneumonia with pleural effusion. 2. Chronic severe pulmonary fibrosis with chronic obstructive pulmonary disease. 3. Type 2 diabetes. 4. Coronary artery disease with history of ventricular fibrillation arrest and compensated congestive heart failure. 5. Severe orthostatic hypotension. 6. Hypokalemia. 7. Constipation. OPERATIONS: None. COMPLICATIONS: The patient had a slow recuperation of strength, appetite, etc. SUMMARY: Claude is a 75-year-old man with the above medical problems, who was admitted because of a prolonged cough, dyspnea, and failure of outpatient treatment. He was found to have a right lower lobe effusion with likely infiltrate. He was started on IV Levaquin and subsequently converted to p.o. Levaquin. His cough slowly improved. His breathing improved. He was also diuresed of about 5 pounds, which seemed to improve his breathing as well. He did get quite orthostatic from this and Florinef was added. Blood sugars were treated with insulin while hospitalized. Because of initial IV steroid use, the insulin was discontinued and he was returned to his glipizide. By 05/28/2020, he was deemed strong enough for discharge to home. He is improved and stable in condition. DISCHARGE MEDICATIONS: 1. Levaquin 500 mg daily x5 days. 2. Protonix 40 mg daily. 3. Glipizide 5 mg b.i.d. 4. Florinef 0.1 mg daily. 5. Flonase b.i.d. p.r.n. 6. Pepcid 20 mg b.i.d. 7. Vitamin D3 25 mg b.i.d. 8. Carvedilol 3.125 mg b.i.d. 9. Atorvastatin 10 mg daily. 10.Albuterol nebulizers p.r.n. 11.Tylenol p.r.n. 12.Flomax 0.4 mg daily. 13.Daliresp 500 mcg daily. 14.Potassium 10 mEq b.i.d. 15.Nitroglycerin p.r.n. 16.Trelegy Ellipta 1 puff daily. 17.Plavix 75 mg daily. 18.Albuterol nebulizer p.r.n. 19.Tylenol p.r.n. 20. He is asked to have a followup appointment in 2 weeks in the office or sooner there be questions or problems. /[id number] TSERING/CATARINO
[2020-05-28 16:37] VITALS: BP 92/51; PULSE 91
== END 2020-05-28 15:10 | disposition home or self-care (01) | DRG 186 ==
LOC: FB.MS 15:42
PROVIDERS: ADMIT Family Medicine; ATTEND Family Medicine
DX: J90 Pleural effusion, not elsewhere classified (principal); J18.9 Pneumonia, unspecified organism; J44.0 Chronic obstructive pulmonary disease with (acute) lower respiratory infection; J44.1 Chronic obstructive pulmonary disease with (acute) exacerbation; J84.10 Pulmonary fibrosis, unspecified; I25.10 Atherosclerotic heart disease of native coronary artery without angina pectoris; I95.1 Orthostatic hypotension; E87.6 Hypokalemia; K59.00 Constipation, unspecified; E11.65 Type 2 diabetes mellitus with hyperglycemia; K21.9 Gastro-esophageal reflux disease without esophagitis; N40.0 Benign prostatic hyperplasia without lower urinary tract symptoms; E11.42 Type 2 diabetes mellitus with diabetic polyneuropathy; I50.9 Heart failure, unspecified; Z79.02 Long term (current) use of antithrombotics/antiplatelets; Z79.899 Other long term (current) drug therapy; Z90.49 Acquired absence of other specified parts of digestive tract
CPT/HCPCS: 36415; 71046; 80048; 80053; 80069; 81001; 82962; 83880; 85025; 87070; 87205; 93005; 93308; 94150; 94640; 94760; A9270-GY; J1815; J1815-GY; J1940; J1956; J2920